=== PATIENT | male | born 1950 | race Caucasian/White ===

== ENCOUNTER 2017-05-13 09:44 | Outpatient (CLI) | payer MEDICARE, BC ==
[2017-05-13] MEDS ORDERED: Iopamidol 370 76% 100 ML VIAL ONE (16:04)
== END 2017-05-13 09:45 | disposition home or self-care (01) ==
LOC: BICCT 09:44
PROVIDERS: ATTEND Internal Medicine Medical Oncology
DX: C64.1 Malignant neoplasm of right kidney, except renal pelvis (principal); C61 Malignant neoplasm of prostate; I70.90 Unspecified atherosclerosis; K57.90 Diverticulosis of intestine, part unspecified, without perforation or abscess without bleeding
CPT/HCPCS: 71260; 74177

== ENCOUNTER 2017-10-23 16:07 | Outpatient (CLI) | payer MEDICARE, BC ==
[2017-10-23 17:15] LABS: #Basophils 0.1 thou/uL (0.0-0.2); #Eosinphils 0.2 thou/uL (0.0-0.7); #Lymphocytes 2.4 thou/uL (1.20-3.40); #Monocytes 0.7 thou/uL (0.11-0.59); #Neutrophils 5.6 thou/uL (1.40-6.50); %Basophils 0.8 % (0.0-1.0); %Eosinophils 2.1 % (0.0-10.0); %Lymphocytes 26.8 % (21.0-51.0); %Monocytes 7.4 % (0.0-10.0); Hemoglobin 13.6 g/dL (14.0-18.0); Mean Corpuscular HGB CONC 33.9 g/dL (32.0-36.0); Mean Corpuscular Hemoglobin 30.5 pg (27.0-31.0); Mean Corpuscular Volume 89.9 fL (78.0-98.0); Mean Platelet Volume 7.9 fL (7.4-10.4); Platelet Count 218 thou/uL (130-400); RBC Distribution Width 12.5 % (11.5-14.5); Red Blood Cell (RBC) Count 4.45 mill/uL (4.70-6.10); White Blood Cell (WBC) Count 8.9 thou/uL (4.8-10.8)
[2017-10-23 17:36] LABS: ALT (SGPT) 18 U/L (8-55); AST (SGOT) 15 U/L (5-34); Albumin 4.1 g/dL (3.4-4.8); Alkaline Phosphatase 48 U/L (40-150); Anion Gap 13 mmol/L (10-20); BUN (Urea Nitrogen) 23 mg/dL (8.4-25.7); Bilirubin, Total 0.3 mg/dL (0.2-1.2); Calc. Creatinine Clearance 0 mL/min (70-130); Calcium 9.5 mg/dL (7.8-10.44); Carbon Dioxide 27 mmol/L (23-31); Chloride 103 mmol/L (98-107); Estimated GFR-MDRD Greater than 90; Globulin 2.9 g/dL (2.4-3.5); Glucose 107 mg/dL (80-115); Potassium 3.9 mmol/L (3.5-5.1); Sodium 139 mmol/L (136-145)
--- NOTE | 2017-10-25 05:59 | EKG ---
Test Reason : Blood Pressure : / mmHG Vent. Rate : 049 BPM Atrial Rate : 049 BPM P-R Int : 148 ms QRS Dur : 098 ms QT Int : 442 ms P-R-T Axes : 070 031 007 degrees QTc Int : 399 ms Marked sinus bradycardia Abnormal ECG When compared with ECG of 16-JUL-2015 04:09, No significant change was found Confirmed by VIKA LEMONS ([id number]) on 10/25/2017 5:59:09 AM Referred By: BERT Confirmed By:VIKA LEMONS
== END 2017-10-23 16:08 | disposition home or self-care (01) ==
LOC: LABBT 16:07
PROVIDERS: ATTEND Surgery
DX: Z01.818 Encounter for other preprocedural examination (principal); K40.90 Unilateral inguinal hernia, without obstruction or gangrene, not specified as recurrent; K62.89 Other specified diseases of anus and rectum
CPT/HCPCS: 80053; 85025; 93005; 93010

== ENCOUNTER 2017-11-01 05:57 | Day surgery (SDC) | payer MEDICARE, BC ==
[2017-10-23 16:15] VITALS: BMI 28.3
[2017-11-01] MEDS ORDERED: Bupivacaine/Epinephrine 0.25% 30 ML VIAL ONE (06:33)
[2017-11-01] MEDS ORDERED: Ketamine 50 MG/ML VIAL ONE (06:47)
[2017-11-01] MEDS ORDERED: Phenylephrine HCL 10 MG/ML VIAL ONE (06:47)
[2017-11-01] MEDS ORDERED: Fentanyl 100 MCG/2 ML VIAL ONE (06:47)
[2017-11-01] MEDS ORDERED: CEFAZOLIN/Water 2 GM/20 ML SYRINGE ONE (06:56)
[2017-11-01] MEDS ORDERED: Propofol 1,000 MG/100 ML VIAL IV ONE (07:59)
[2017-11-01] MEDS ORDERED: Morphine 4 MG/ML VIAL ONE ×2 (09:34→09:44)
[2017-11-01] MEDS ORDERED: Promethazine HCl 25 MG/ML VIAL ONE (09:34)
--- NOTE | 2017-11-01 09:55 | OP ---
DATE OF PROCEDURE: 11/01/2017 PREOPERATIVE DIAGNOSIS: Right inguinal hernia with rectal nodule. SURGEON: Eber Seth M.D. PROCEDURE PERFORMED: Flexible sigmoidoscopy and right inguinal hernia repair with mesh. INDICATIONS: This is a 67-year-old male with a history of prostate cancer who on rectal exam was fou nd to have some anterior nodules in the lower rectum. He also had a painful right inguinal hernia. FINDINGS: There was no abnormality seen in the mucosa, so nothing on flex sig, he did have diverticul osis of the sigmoid colon. He had an indirect right inguinal hernia. PROCEDURE IN DETAIL: After informed consent was obtained, patient was taken to the operating room an d given general endotracheal anesthesia. He was placed in the left lateral decubitus position. A di gital rectal exam was performed. The video endoscope was inserted under direct vision and advanced u sing air insufflation to the lower descending colon, then slowly removed. He had a very tortuous sig moid colon containing a lot of diverticula, but no nodules. Down in the rectum, mucosa looked good r etroflex and really could not see the nodule. There is some nodularity palpable, but not visualized. Again, normal mucosa. The colon decompressed and the scope removed. Then, he was placed in the aldana pine position. His groin was prepped and draped in usual fashion. Local anesthesia infiltrated subc utaneously and deep. A transverse right inguinal incision was performed. Subcu divided sharply. Fa scia external oblique was incised in direction of its fibers through the external ring. Spermatic co rd isolated with a Paulette drain. Cremasteric fibers . Hernia sac was found. This was dis sected from surrounding cord structures down to the internal ring and reduced. Reduction maintained utilizing a PHS hernia system. The posterior layer placed in the preperitoneal space. It was suture d to the pubic tubercle medially, tucked under the external oblique fascia laterally. Then a notch w as cut out for the spermatic cord. The cord placed anatomic. Hemostasis was assured. The external oblique fascia closed with a running 3-0 Vicryl. Tyler's closed with interrupted 3-0 Vicryl and ski n closed with a running subcuticular 4-0 Rapide. Steri-Strips applied. Sterile bandage applied. Th e patient tolerated the procedure well and was transferred to recovery in good condition. Sponge and needle count verified correct x2.
[2017-11-01] MEDS ORDERED: HYDROcodone/Acetaminophen 5/325 mg Tablet ONE (11:35)
[2017-11-01] MEDS ORDERED: Dexamethasone 20 MG/5 ML VIAL ONE (15:05)
[2017-11-01] MEDS ORDERED: Ondansetron HCl/PF 4 MG/2 ML Vial ONE (15:05)
[2017-11-01] MEDS ORDERED: PROPOFOL 200 MG/20 ML VIAL ONE (15:05)
[2017-11-01] MEDS ORDERED: Lidocaine 1% PF 5 ML VIAL ONE (15:05)
== END 2017-11-01 12:19 | disposition home or self-care (01) ==
LOC: SDC 05:57
PROVIDERS: ATTEND Surgery
PROC: 0YU50JZ Supplement Right Inguinal Region with Synthetic Substitute, Open Approach (ICD-10-PCS; principal; 2017-11-01)
PROC: 0DJD8ZZ Inspection of Lower Intestinal Tract, Via Natural or Artificial Opening Endoscopic (ICD-10-PCS; 2017-11-01)
DX: K40.90 Unilateral inguinal hernia, without obstruction or gangrene, not specified as recurrent (principal); K62.89 Other specified diseases of anus and rectum; K57.30 Diverticulosis of large intestine without perforation or abscess without bleeding; I10 Essential (primary) hypertension; Z85.46 Personal history of malignant neoplasm of prostate; Z87.891 Personal history of nicotine dependence; Z79.82 Long term (current) use of aspirin; Z79.84 Long term (current) use of oral hypoglycemic drugs; Z79.899 Other long term (current) drug therapy
CPT/HCPCS: 45330; 49505; 96374; 96375; C1781; J1100; J2001; J2270; J2370; J2405; J2550; J2704; J3010

== ENCOUNTER 2017-11-27 15:21 | Outpatient (CLI) | payer MEDICARE, BC | END 2017-11-27 15:22 | disposition home or self-care (01) | LOC: BICRAD 15:21 | PROVIDERS: ATTEND Internal Medicine Medical Oncology | DX: R91.8 Other nonspecific abnormal finding of lung field (principal) | CPT/HCPCS: 71046 ==

== ENCOUNTER 2018-05-23 11:44 | Outpatient (CLI) | payer MEDICARE, BC ==
--- NOTE | 2018-05-23 13:45 | RAD ---
PA AND LATERAL CHEST XRAY: DATE: 05/23/2018. HISTORY: Malignant neoplasm of prostate gland. COMPARISON: 11/27/2017. FINDINGS: The cardiac silhouette and pulmonary vasculature are within normal limits. The lungs are clear. Vas cular calcification is seen in the thoracic aorta. No sclerotic or lytic osseous lesions are appreci ated on this exam. Right acromioclavicular joint osteoarthritis is present. The chest is stable fro m prior exam. IMPRESSION: Stable chest without evidence of an acute cardiopulmonary process. POS: DIANA
== END 2018-05-23 11:45 | disposition home or self-care (01) ==
LOC: BICRAD 11:44
PROVIDERS: ATTEND Family Medicine
DX: C61 Malignant neoplasm of prostate (principal)
CPT/HCPCS: 71046

== ENCOUNTER 2018-05-30 13:58 | Outpatient (CLI) | payer MEDICARE, BC ==
[~2018-05-30 13:58] MED LIST: Iopamidol 370 76% 100 ML VIAL ONE
--- NOTE | 2018-05-30 16:26 | CT ---
CT CHEST AND ABDOMEN AND PELVIS WITH IV CONTRAST: INDICATIONS: History of renal and prostate cancer. COMPARISON: Prior CT chest, abdomen, and pelvis dated 05/13/2017. FINDINGS: There is scattered emphysema. Small, nonspecific, sub-4-mm pulmonary nodules within both lungs are u nchanged. No new pulmonary nodule, pleural effusion, parenchymal opacity, or lymphadenopathy is seen . There are mild coronary artery and thoracic aorta calcifications. There is stable post surgical change, consistent with partial nephrectomy versus ablation involving t he posterior aspect of the right kidney. No new solid mass is evident. No lymphadenopathy is noted. The adrenal glands, pancreas, and spleen appear within normal limits. No focal hepatic lesion is e vident. There is wall thickening and scattered colonic diverticula involving the colon, much of which is rela micah to decompression. No active inflammatory change is evident. The bladder is decompressed. The p rostate is surgically absent. No drainable fluid collection is evident. There is prominent vascular calcification involving the abdominopelvic vasculature. Scattered degene rative and osteoarthritic change. IMPRESSION: 1. No evidence of recurrent or metastatic disease. 2. Prominent colonic diverticulosis. 3. Other stable findings as above. POS: MANISH
== END 2018-05-30 13:59 | disposition home or self-care (01) ==
LOC: BICCT 13:58
PROVIDERS: ATTEND Internal Medicine Medical Oncology
DX: C64.1 Malignant neoplasm of right kidney, except renal pelvis (principal); C61 Malignant neoplasm of prostate; K57.30 Diverticulosis of large intestine without perforation or abscess without bleeding; I70.0 Atherosclerosis of aorta; I25.10 Atherosclerotic heart disease of native coronary artery without angina pectoris; J43.9 Emphysema, unspecified; M19.90 Unspecified osteoarthritis, unspecified site; R91.8 Other nonspecific abnormal finding of lung field; K63.89 Other specified diseases of intestine; Z98.890 Other specified postprocedural states
CPT/HCPCS: 71260; 74177; Q9967

== ENCOUNTER 2018-08-21 15:07 | Outpatient (CLI) | payer MEDICARE, BC ==
--- NOTE | 2018-08-21 15:25 | RAD ---
RADIOGRAPH CHEST 2 VIEWS: DATE: 08/21/2018 HISTORY: 67-year-old male with prostate cancer. FINDINGS: There is no airspace density, pulmonary edema, pleural effusion, pneumothorax, or cardiomegaly. IMPRESSION: No acute cardiopulmonary findings.
== END 2018-08-21 15:08 | disposition home or self-care (01) ==
LOC: BICRAD 15:07
PROVIDERS: ATTEND Internal Medicine Medical Oncology
DX: C61 Malignant neoplasm of prostate (principal)
CPT/HCPCS: 71046

== ENCOUNTER 2018-12-30 11:59 | Outpatient (CLI) | payer MEDICARE, BC ==
--- NOTE | 2018-12-30 12:34 | RAD ---
CHEST TWO VIEWS: 12/30/2018 HISTORY: Prostate cancer. COMPARISON: 08/21/2018 FINDINGS: Diffuse increased linear interstitial density is noted, unchanged when compared to the prior examinat ion. Heart and mediastinal contours are stable. No pneumothorax, pleural fluid, focal consolidation o r alveolar edema. The lungs are hyperinflated on the lateral view suggesting air trapping. IMPRESSION: Stable chronic findings as above. POS: DIANA
== END 2018-12-30 12:00 | disposition home or self-care (01) ==
LOC: BICRAD 11:59
PROVIDERS: ATTEND Internal Medicine Medical Oncology
DX: C61 Malignant neoplasm of prostate (principal); C64.1 Malignant neoplasm of right kidney, except renal pelvis; J98.4 Other disorders of lung
CPT/HCPCS: 71046

== ENCOUNTER 2019-06-02 08:39 | Outpatient (CLI) | payer MEDICARE, BC ==
[2019-06-02 09:26] LABS: Estimated GFR-MDRD - POC Greater than 90
--- NOTE | 2019-06-02 10:30 | CT ---
CT CHEST WITH CONTRAST CT ABDOMEN WITH CONTRAST CT PELVIS WITH CONTRAST: HISTORY: Right kidney cancer and prostate cancer. COMPARISON: CT chest and abdomen and pelvis 05/30/2018. FINDINGS: There are innumerable centrilobular small nodules throughout the lungs predominantly in the upper lob es. The largest nodule in the right upper lobe measures 3-4 mm axial image 24. No pneumothorax. No effusion. No confluent airspace consolidation. The thyroid is unremarkable. No mediastinal adenopathy. No pericardial effusion. No axillary or internal mammary adenopathy. The liver is unremarkable as well as the gallbladder. No intrahepatic or extrahepatic biliary dilata tion. Mild pancreatic parenchymal atrophy. The spleen is unremarkable. Prior partial right nephrec teo. The aortic contour is nonaneurysmal. Moderate atherosclerotic plaque of the aortoiliac system withou t aneurysmal dilatation. There are no dilated loops of large or small bowel. Apparent prior prostatectomy. High-grade divert icular disease sigmoid colon without active current inflammation. The appendix is visualized and is normal. No retroperitoneal or periaortic adenopathy. No perirenal adenopathy. No renal mass nor hydronephro sis. Punctate calculus right inferior renal collecting system versus arcuate vascular calcifications relatively similar. High-grade degenerative disk space disease L3-S1 with type 3 Modic end plate ch anges, sclerosis. There is also neural foraminal narrowing bilaterally at these levels due to disk-o steophyte complexes. No suspicious osteolytic or osteoblastic lesions. No displaced rib fracture. Osseous pelvis is intact. IMPRESSION: 1. No evidence for local recurrence of metastatic disease. 2. Lung findings of respiratory bronchiolitis-interstitial lung disease. 3. Circumferentially thickened sigmoid colon relatively similar to prior exam, likely the sequelae o f prior bouts of diverticulitis, although correlation with colonoscopy is recommended. POS: HOME
[2019-06-02] MEDS ORDERED: Iopamidol-370 76% 500 ML 1 ML ONE (15:35)
== END 2019-06-02 08:40 | disposition home or self-care (01) ==
LOC: BICCT 08:39
PROVIDERS: ATTEND Internal Medicine Medical Oncology
DX: C64.1 Malignant neoplasm of right kidney, except renal pelvis (principal); C61 Malignant neoplasm of prostate; R91.8 Other nonspecific abnormal finding of lung field
CPT/HCPCS: 71260; 74177; 82565; Q9967

== ENCOUNTER 2020-05-04 08:21 | Outpatient (CLI) | payer MEDICARE, BC ==
[2020-05-04 09:12] LABS: Estimated GFR-MDRD - POC Greater than 90
--- NOTE | 2020-05-04 10:01 | CT ---
EXAM: CT chest, abdomen, and pelvis with IV contrast: HISTORY: Malignant neoplasm of prostate gland. Malignant neoplasm right kidney. COMPARISON: 06/02/[address] abdomen and pelvis on 12/06/2019 FINDINGS: CT THORAX: Lungs: Again noted are innumerable centrilobular small nodules within the lungs bilaterally predomina ntly in the upper lobes unchanged from prior exam. No consolidation is seen. Pleura: No pleural effusion. Lymph nodes: No lymphadenopathy. Mediastinum: No acute process of the mediastinal structures. Chest wall: No abnormalities CT ABDOMEN AND PELVIS: Liver: Within normal limits. Gallbladder: Within normal limits. \ Pancreas: Within normal limits. Spleen: Within normal limits. Adrenal glands: Within normal limits. Kidneys: Evidence of partial nephrectomy right kidney is again seen. No enhancing renal lesion is see n bilaterally, and there is no hydronephrosis. Previously seen right hydronephrosis and hydroureter has resolved. However, the previously noted right ureteral calculus has migrated further distally and is now seen in the distal right ureter just proximal to the right UVJ. Urinary Bladder: Incompletely distended but grossly within normal limits. Reproductive organs: Evidence of prostatectomy. Bowel: Colonic diverticulosis. There is suggested thickening of millard of the sigmoid colon which is l ikely related to multiple colonic diverticula and incomplete distention. No pericolonic inflammatory changes are appreciated. Loops of small bowel are normal in caliber. Adenopathy:No enlarged lymph nodes are seen by CT size criteria. Peritoneum: No free fluid or fluid collection is seen. No free intraperitoneal gas is identified. Abdominal wall: No abnormalities seen. Osseous structures: Multilevel degenerative changes are again seen probably involving the lower lumba r spine. No suspicious lytic or sclerotic osseous lesions are identified. IMPRESSION: 1. Previously noted mid right ureteral calculus has now migrated into the distal right ureter measuri ng approximately 3 mm. However, the previously noted right hydronephrosis and hydroureter has resolved. 2. Postoperative changes related to right partial nephrectomy. 3. No CT findings seen to suggest metastatic disease. 4. Lung findings likely related to bronchiolitis/interstitial lung disease. 5. Persistent thickening of the sigmoid colon similar to prior studies which again could be related t o incomplete distention and the multiple colonic diverticuli. However, this would be better evaluated with colonoscopy if this has not been performed.
[2020-05-04] MEDS ORDERED: Iopamidol 370 76% 100 ML VIAL ONE (14:17)
== END 2020-05-04 08:22 | disposition home or self-care (01) ==
LOC: CT 08:21
PROVIDERS: ATTEND Internal Medicine Medical Oncology
DX: C64.1 Malignant neoplasm of right kidney, except renal pelvis (principal); C61 Malignant neoplasm of prostate; N20.1 Calculus of ureter; Z90.5 Acquired absence of kidney; K63.89 Other specified diseases of intestine
CPT/HCPCS: 71260; 74177; 82565; Q9967

== ENCOUNTER 2020-12-05 16:08 | Outpatient (CLI) | payer MEDICARE, BC ==
[2020-12-05 17:44] LABS: Hemoglobin 13.9 g/dL (13.5-17.5); Mean Corpuscular HGB CONC 34.1 g/dL (32.0-36.0); Mean Corpuscular Hemoglobin 29.1 pg (27.0-33.0); Mean Corpuscular Volume 85.5 fl (81.2-95.1); Mean Platelet Volume 10.6 fl (7.4-10.4); Platelet Count 293 10x3/uL (150-450); RBC Distribution Width 14.4 % (11.5-14.5); Red Blood Cell (RBC) Count 4.77 10x6/uL (4.32-5.72); White Blood Cell (WBC) Count 10.7 10x3/uL (3.5-10.5)
[2020-12-05 17:55] LABS: Anion Gap 14 mmol/L (10-20); BUN (Urea Nitrogen) 19 mg/dL (8.4-25.7); Calc. Creatinine Clearance 0 mL/min (70-130); Calcium 9.7 mg/dL (7.8-10.44); Carbon Dioxide 24 mmol/L (23-31); Chloride 105 mmol/L (98-107); Glucose 96 mg/dL (83-110); Sodium 139 mmol/L (136-145)
[2020-12-05 18:04] LABS: INR-International Normal Ratio 0.9; PTT 27.6 sec (22.0-33.0); Prothrombin Time 10.4 sec (9.5-12.1)
[2020-12-06 08:18] LABS: SARS-CoV-2 PCR by NAA Not Detected (NotDetected)
== END 2020-12-05 16:09 | disposition home or self-care (01) ==
LOC: LABBT 16:08
PROVIDERS: ATTEND Neurological Surgery
DX: Z01.812 Encounter for preprocedural laboratory examination (principal); Z20.822 Contact with and (suspected) exposure to COVID-19
CPT/HCPCS: 80048; 85027; 85610; 85730; U0003; U0005

== ENCOUNTER 2020-12-08 06:03 | Day surgery (SDC) | payer MEDICARE, BC ==
[2020-12-07 11:31] VITALS: BMI 27.7
[2020-12-08] MEDS ORDERED: Thrombin 5000 UNITS/5 ML VIAL ONE (06:09)
[2020-12-08] MEDS ORDERED: Neomycin-Polymyxin 1 ML AMP ONE (06:09)
[2020-12-08] MEDS ORDERED: cefOXitin Sodium/Dextrose 2 GM/50 ML BAG ONE (06:14)
[2020-12-08] MEDS ORDERED: ceFAZolin 2 GM/DEX 5% 100 ML BAG ONE (06:15)
[2020-12-08] MEDS ORDERED: Fentanyl 100 MCG/2 ML VIAL ONE ×3 (06:50→10:25)
[2020-12-08] MEDS ORDERED: Ondansetron PF 4 MG/2 ML Vial ONE (07:01)
[2020-12-08] MEDS ORDERED: Lidocaine 2% PF 5 ML VIAL ONE (07:01)
[2020-12-08] MEDS ORDERED: Dexamethasone 20 MG/5 ML VIAL ONE (07:01)
[2020-12-08] MEDS ORDERED: Metoclopramide HCl 10 MG/2 ML VIAL ONE (07:01)
[2020-12-08] MEDS ORDERED: Succinylcholine 200 MG/10 ml SYRINGE FS ONE (07:01)
[2020-12-08] MEDS ORDERED: ePHEDrine 50 MG/ML VIAL ONE (07:01)
[2020-12-08] MEDS ORDERED: Rocuronium Bromide 10 MG/ML (10ML VIAL) ONE (07:01)
[2020-12-08] MEDS ORDERED: PROPOFOL 200 MG/20 ML VIAL ONE (07:01)
[2020-12-08] MEDS ORDERED: diphenhydrAMINE 50 MG/ML VIAL ONE (07:01)
[2020-12-08] MEDS ORDERED: Morphine 10 MG/ML VIAL ONE (08:48)
[2020-12-08] MEDS ORDERED: SUGAMMADEX SODIUM 200 MG/2 ML VIAL ONE (09:13)
[2020-12-08] MEDS ORDERED: Tamsulosin HCl 0.4 MG CAP ONE (09:52)
[2020-12-08] MEDS ORDERED: Morphine Sulfate 2 MG/ML SYRINGE SLOW IVP PRN (09:53)
[2020-12-08] MEDS ORDERED: HYDROmorphone 2 MG/ML VIAL SLOW IVP PRN (09:53)
[2020-12-08] MEDS ORDERED: Ondansetron HCl/PF 4 MG/2 ML Vial IVP PRN (09:53)
[2020-12-08] MEDS ORDERED: HYDROcodone/Acetaminophen 5/325 mg Tablet ONE (11:55)
== END 2020-12-08 13:58 | disposition home or self-care (01) ==
LOC: SDC 06:03
PROVIDERS: ATTEND Neurological Surgery
PROC: 0RG10A0 Fusion of Cervical Vertebral Joint with Interbody Fusion Device, Anterior Approach, Anterior Column, Open Approach (ICD-10-PCS; principal; 2020-12-08)
DX: M50.021 Cervical disc disorder at C4-C5 level with myelopathy (principal); M47.12 Other spondylosis with myelopathy, cervical region; M48.061 Spinal stenosis, lumbar region without neurogenic claudication; I10 Essential (primary) hypertension; Z85.46 Personal history of malignant neoplasm of prostate; Z87.891 Personal history of nicotine dependence; Z79.82 Long term (current) use of aspirin; Z79.84 Long term (current) use of oral hypoglycemic drugs; Z79.899 Other long term (current) drug therapy; Z90.5 Acquired absence of kidney
CPT/HCPCS: 20930; 20936; 22551; 22845; 22853; 76000; C1713 ×3; C1776 ×2; J0694; J1100; J1200; J2001; J2270; J2405; J2704; J2765; J3010; J3490

== ENCOUNTER 2020-12-21 10:24 | Outpatient (CLI) | payer MEDICARE, BC | END 2020-12-21 10:25 | disposition home or self-care (01) | LOC: TBSIIMAG 10:24 | PROVIDERS: ATTEND Neurological Surgery | DX: M50.00 Cervical disc disorder with myelopathy, unspecified cervical region (principal); Z98.1 Arthrodesis status | CPT/HCPCS: 72040 ==

== ENCOUNTER 2022-06-06 09:58 | Outpatient (CLI) | payer MEDICARE ==
[~2022-06-06 09:58] MED LIST changes: -Iopamidol 370 76% 100 ML VIAL ONE; +Iopamidol-370 76% 500 ML MDV (1 ML CHARGE) ONE
== END 2022-06-06 09:59 | disposition home or self-care (01) ==
LOC: CT 09:58
PROVIDERS: ATTEND Internal Medicine Medical Oncology
DX: C64.1 Malignant neoplasm of right kidney, except renal pelvis (principal); C61 Malignant neoplasm of prostate; R91.1 Solitary pulmonary nodule; N20.1 Calculus of ureter; Z90.5 Acquired absence of kidney
CPT/HCPCS: 71260; 74177; 82565

== ENCOUNTER 2023-08-06 12:09 | Day surgery (SDC) | payer MEDICARE ==
[2023-08-02 14:01] VITALS: BMI 25.2
[2023-08-06] MEDS ORDERED: Acetaminophen 500 MG TAB ONE (12:20)
[2023-08-06] MEDS ORDERED: Ketorolac Tromethamine 30 MG (1 mL) VIAL ONE (12:20)
[2023-08-06] MEDS ORDERED: EPINEPHrine 1 MG/ML VIAL ONE (14:27)
[2023-08-06] MEDS ORDERED: Bupivacaine 0.25% HCL 30 ML VIAL ONE (14:27)
[2023-08-06] MEDS ORDERED: PROPOFOL 20 ML ONE (14:33)
[2023-08-06] MEDS ORDERED: CEFAZOLIN 2 GM VIAL ONE (14:35)
[2023-08-06] MEDS ORDERED: Sodium Chloride 0.9% 100 ML ONE (14:36)
[2023-08-06] MEDS ORDERED: Lidocaine 2% PF 5 ML VIAL ONE (14:39)
[2023-08-06] MEDS ORDERED: fentaNYL PF 100 MCG/2 ML SYRINGE ONE (14:45)
[2023-08-06] MEDS ORDERED: Ondansetron PF 4 MG/2 ML Vial ONE (14:51)
== END 2023-08-06 17:00 | disposition home or self-care (01) ==
LOC: SDC 12:09
PROVIDERS: ATTEND Specialist
PROC: 0JH60WZ Insertion of Totally Implantable Vascular Access Device into Chest Subcutaneous Tissue and Fascia, Open Approach (ICD-10-PCS; principal; 2023-08-06)
DX: C25.9 Malignant neoplasm of pancreas, unspecified (principal); C79.9 Secondary malignant neoplasm of unspecified site; I10 Essential (primary) hypertension; E78.2 Mixed hyperlipidemia; Z90.79 Acquired absence of other genital organ(s); Z79.899 Other long term (current) drug therapy; Z87.891 Personal history of nicotine dependence
CPT/HCPCS: 36561; 71045; C1788; J0171; J0665; J1642; J1885; J2001; J2405; J2704; J3490

== ENCOUNTER 2023-08-19 12:55 | Emergency (ER) | payer MEDICARE ==
[2023-08-19 14:50] LABS: ALT (SGPT) 50 U/L (8-55); AST (SGOT) 38 U/L (5-34); Alkaline Phosphatase 155 U/L (40-110); Anion Gap 14 mmol/L (10-20); BUN (Urea Nitrogen) 40 mg/dL (8.4-25.7); Bilirubin, Total 0.5 mg/dL (0.2-1.2); Calc. Creatinine Clearance 0 mL/min (70-130); Calcium 8.6 mg/dL (7.8-10.44); Carbon Dioxide 22 mmol/L (23-31); Chloride 105 mmol/L (98-107); Estimated GFR 93; Globulin 3.5 g/dL (2.4-3.5); Glucose 126 mg/dL (83-110); Potassium 4.1 mmol/L (3.5-5.1); Protein, Total 6.5 g/dL (5.8-8.1); Sodium 137 mmol/L (136-145)
[2023-08-19 14:57] LABS: INR-International Normal Ratio 1.3; PTT 27.8 sec (22.9-36.1); Prothrombin Time 16.2 sec (12.0-14.7)
[2023-08-19 15:03] LABS: Anisocytosis SLIGHT = 6-15 cells HPF (0-5); Burr Cells SLIGHT = 2-5 cells HPF (0-1); Microcytosis SLIGHT = 6-15 cells HPF (0-5); Platelet Adequacy Comment Platelets Decreased; Polychromasia SLIGHT = 2-3 cells HPF (0-2); Target Cells SLIGHT = 2-5 cells HPF (0-1)
[2023-08-19 15:04] LABS: #Basophils 0.05 10x3/uL (0.0-0.2); %Basophils 0.2 % (0.0-1.0); %Eosinophils 1.3 % (0.0-10.0); %Lymphocytes 8.7 % (21.0-51.0); %Monocytes 6.3 % (0.0-10.0); %Neutrophils 81.7 % (42.0-75.0); Hematocrit 25.6 % (42.0-52.0); Hemoglobin 8.6 g/dL (14.0-18.0); Mean Corpuscular HGB CONC 33.6 g/dL (32.0-36.0); Mean Corpuscular Hemoglobin 30.2 pg (27.0-31.0); Mean Corpuscular Volume 89.8 fL (78.0-98.0); Mean Platelet Volume 10.7 fL (7.4-10.4); Platelet Count 105 10x3/uL (130-400); RBC Distribution Width 13.5 % (11.5-14.5); Red Blood Cell (RBC) Count 2.85 mill/uL (4.70-6.10)
== END 2023-08-19 15:33 | disposition home or self-care (01) ==
LOC: ERS 12:55
DX: R04.0 Epistaxis (principal); I10 Essential (primary) hypertension; E78.5 Hyperlipidemia, unspecified; E11.9 Type 2 diabetes mellitus without complications
CPT/HCPCS: 80053; 85025; 85610; 85730; 99283

== ENCOUNTER 2023-08-28 15:43 | Inpatient (IN) | payer MEDICARE ==
[2023-08-28 16:09] LABS: #Basophils 0.05 10x3/uL (0.0-0.2); %Basophils 0.2 % (0.0-1.0); %Eosinophils 0.1 % (0.0-10.0); %Lymphocytes 6.6 % (21.0-51.0); %Neutrophils 89.7 % (42.0-75.0); Hematocrit 31.9 % (42.0-52.0); Hemoglobin 10.7 g/dL (14.0-18.0); Mean Corpuscular HGB CONC 33.5 g/dL (32.0-36.0); Mean Corpuscular Hemoglobin 29.6 pg (27.0-31.0); Mean Corpuscular Volume 88.1 fL (78.0-98.0); Mean Platelet Volume 9.5 fL (7.4-10.4); Platelet Count 300 10x3/uL (130-400); Red Blood Cell (RBC) Count 3.62 mill/uL (4.70-6.10)
[2023-08-28 16:26] LABS: ALT (SGPT) 40 U/L (8-55); AST (SGOT) 40 U/L (5-34); Albumin 3.1 g/dL (3.4-4.8); Alkaline Phosphatase 159 U/L (40-110); Anion Gap 18 mmol/L (10-20); BUN (Urea Nitrogen) 50 mg/dL (8.4-25.7); Bilirubin, Total 0.6 mg/dL (0.2-1.2); Calc. Creatinine Clearance 0 mL/min (70-130); Calcium 9.3 mg/dL (7.8-10.44); Carbon Dioxide 24 mmol/L (23-31); Chloride 99 mmol/L (98-107); Estimated GFR 91; Globulin 4.5 g/dL (2.4-3.5); Glucose 155 mg/dL (83-110); Lipase 8 U/L (8-78); Potassium 4.3 mmol/L (3.5-5.1); Protein, Total 7.6 g/dL (5.8-8.1); Sodium 137 mmol/L (136-145)
[2023-08-28 16:30] LABS: Troponin I 0.104 ng/mL (< 0.028)
[2023-08-28 16:46] LABS: Bacteria/HPF None Seen HPF (None Seen); Bilirubin Negative (Negative); Blood, Urine Negative (Negative); CAUTI Indications for Culture Alt mental st,lethar; Clarity Clear (Clear); Glucose, Urine (Dipstick) Normal (Negative); Ketone, Urine Negative (Negative); Leukocyte Negative Leu/uL (Negative); Nitrite Negative (Negative); Protein, Urine (Dipstick) Negative (Neg-Trace); RBC/HPF 0-3 HPF (0-3); Specific Gravity, Urine 1.013 (1.002-1.036); Squamous Epithelial None Seen HPF (0-3); Urobilinogen Normal mg/dL (Less than 2); WBC/HPF 0-3 HPF (0-3); pH, Urine 5.5 (5.0-9.0)
[2023-08-28] MEDS ORDERED: fentaNYL 50 mcg/mL 1 mL Vial ONE (17:01)
[2023-08-28 17:02] LABS: Urine Culture Reflex No No
[2023-08-28] MEDS ORDERED: Aspirin Chewable 81 MG TAB ONE (17:20)
[2023-08-28] MEDS ORDERED: Cefepime 2 GM VIAL ONE (17:20)
[2023-08-28] MEDS ORDERED: Sodium Chloride 0.9% 100 ML ONE (17:21)
[2023-08-28] MEDS ORDERED: Enoxaparin 60 MG (0.6 mL) SYRINGE ONE (17:50)
[2023-08-28] MEDS ORDERED: Enoxaparin 30 MG (0.3 mL) SYRINGE ONE (17:50)
[2023-08-28] MEDS ORDERED: Acetaminophen 325 MG TAB PO PRN (18:02)
[2023-08-28] MEDS ORDERED: HYDROcodone/Acetaminophen 5/325 mg Tablet PO PRN (18:02)
[2023-08-28] MEDS ORDERED: Ondansetron PF 4 MG/2 ML Vial IVP PRN (18:02)
[2023-08-28] MEDS ORDERED: Ipratropium/Albuterol 3 ML NEB NEB PRN (18:15)
[2023-08-28] MEDS ORDERED: Dextrose 5% in Water 1,000 ML IV PRN (18:19)
[2023-08-28] MEDS ORDERED: Dextrose 50% Abboject 50 ML SYRINGE SLOW IVP PRN (18:19)
[2023-08-28] MEDS ORDERED: Glucagon 1 MG/ML KIT IM PRN (18:19)
[2023-08-28] MEDS ORDERED: HumaLOG 300 UNITS/3 ML VIAL SC PRN (18:19)
[2023-08-28] MEDS ORDERED: HYDROcodone/Acetaminophen 10/325 mg Tablet PO PRN (18:59)
[2023-08-28] MEDS ORDERED: Morphine 2 MG/ML VIAL SLOW IVP PRN (19:01)
[2023-08-28 19:25] LABS: Troponin I 0.102 ng/mL (< 0.028)
[2023-08-28 20:05] VITALS: BMI 25.4
[2023-08-28] MEDS ORDERED: Vancomycin 1 GM in Premix 1 BAG IVPB SCH (21:00)
[2023-08-28] MEDS: Ipratropium/Albuterol 3 ML NEB NEB SCH (21:29)
[2023-08-28 23:19] LABS: Lactic Acid 1.8 mmol/L (0.5-2.2)
[2023-08-28 23:23] LABS: Troponin I 0.085 ng/mL (< 0.028)
[2023-08-28] MEDS: Famotidine/PF 20 mg/2ml Vial SLOW IVP SCH (23:23)
[2023-08-28] MEDS: Atorvastatin Calcium 10 MG TAB PO SCH (23:23)
[2023-08-28] MEDS: Senokot 8.6 MG TAB PO SCH (23:23)
[2023-08-28] MEDS: guaiFENesin ER 600 MG TAB PO SCH (23:24)
[2023-08-28] MEDS: Sodium Chloride 0.9% 1,000 ML IV SCH (23:24)
[2023-08-29 02:09] LABS: #Basophils 0.04 10x3/uL (0.0-0.2); %Basophils 0.3 % (0.0-1.0); %Eosinophils 0.3 % (0.0-10.0); %Lymphocytes 9.8 % (21.0-51.0); %Monocytes 1.8 % (0.0-10.0); %Neutrophils 86.7 % (42.0-75.0); Hematocrit 24.8 % (42.0-52.0); Hemoglobin 8.3 g/dL (14.0-18.0); Mean Corpuscular HGB CONC 33.5 g/dL (32.0-36.0); Mean Corpuscular Hemoglobin 30.3 pg (27.0-31.0); Mean Corpuscular Volume 90.5 fL (78.0-98.0); Mean Platelet Volume 9.3 fL (7.4-10.4); Platelet Count 228 10x3/uL (130-400); RBC Distribution Width 16.8 % (11.5-14.5); Red Blood Cell (RBC) Count 2.74 mill/uL (4.70-6.10)
[2023-08-29 02:32] LABS: Troponin I 0.093 ng/mL (< 0.028)
[2023-08-29 04:34] LABS: Vancomycin, Random 20.4 ug/mL (See Comment)
[2023-08-29 04:36] LABS: ALT (SGPT) 24 U/L (8-55); AST (SGOT) 26 U/L (5-34); Albumin 2.4 g/dL (3.4-4.8); Alkaline Phosphatase 112 U/L (40-110); Anion Gap 14 mmol/L (10-20); BUN (Urea Nitrogen) 44 mg/dL (8.4-25.7); Bilirubin, Total 0.6 mg/dL (0.2-1.2); Calc. Creatinine Clearance 118 mL/min (70-130); Calcium 8.3 mg/dL (7.8-10.44); Carbon Dioxide 20 mmol/L (23-31); Chloride 105 mmol/L (98-107); Estimated GFR 98; Globulin 3.5 g/dL (2.4-3.5); Glucose 123 mg/dL (83-110); Potassium 4.2 mmol/L (3.5-5.1); Protein, Total 5.9 g/dL (5.8-8.1); Sodium 135 mmol/L (136-145)
[2023-08-29] MEDS: Cefepime 2 GM VIAL ONE (07:15)
[2023-08-29 07:17] LABS: Troponin I 0.084 ng/mL (< 0.028)
[2023-08-29] MEDS: Cefepime 2 GM in Sodium Chloride 0.9% 100 ML IVPB SCH (07:49)
[2023-08-29] MEDS: fentaNYL 12 mcg Patch TD SCH (09:38)
[2023-08-29] MEDS: Enoxaparin 100 MG (1 mL) SYRINGE SC SCH (09:39)
[2023-08-29] MEDS: Vancomycin (BATCH) 1.25 GM in Premix 1 BAG IVPB SCH (09:45)
[2023-08-29 11:48] VITALS: BMI 25.4
[2023-08-29] MEDS ORDERED: PEGFILGRASTIM-PBBK 6 MG/0.6 ML SYRINGE SQ SCH (18:00)
[2023-08-29] MEDS: PEGFILGRASTIM-JMDB 6 MG/0.6 ML SYRINGE SQ SCH ×2 (18:13→18:35)
[2023-08-29] MEDS: Vancomycin (BATCH) 1.5 GM in Premix 1 BAG IVPB SCH (22:31)
[2023-08-30 06:24] LABS: Hematocrit 24.3 % (42.0-52.0); Mean Corpuscular HGB CONC 32.9 g/dL (32.0-36.0); Mean Corpuscular Hemoglobin 30.3 pg (27.0-31.0); Mean Platelet Volume 9.8 fL (7.4-10.4); Platelet Count 257 10x3/uL (130-400); RBC Distribution Width 16.9 % (11.5-14.5); Red Blood Cell (RBC) Count 2.64 mill/uL (4.70-6.10)
[2023-08-30 06:36] LABS: Vancomycin, Random 17.7 ug/mL (See Comment)
[2023-08-30 06:37] LABS: ALT (SGPT) 20 U/L (8-55); AST (SGOT) 16 U/L (5-34); Albumin 2.3 g/dL (3.4-4.8); Alkaline Phosphatase 103 U/L (40-110); Anion Gap 13 mmol/L (10-20); BUN (Urea Nitrogen) 25 mg/dL (8.4-25.7); Bilirubin, Total 0.7 mg/dL (0.2-1.2); Calc. Creatinine Clearance 121 mL/min (70-130); Calcium 7.7 mg/dL (7.8-10.44); Carbon Dioxide 19 mmol/L (23-31); Chloride 108 mmol/L (98-107); Estimated GFR 98; Globulin 3.1 g/dL (2.4-3.5); Glucose 112 mg/dL (83-110); Potassium 3.8 mmol/L (3.5-5.1); Protein, Total 5.4 g/dL (5.8-8.1); Sodium 136 mmol/L (136-145)
[2023-08-30 06:48] LABS: Anisocytosis MODERATE=16-30 cells HPF (0-5); Band 8 % (5-11); Eosinophils 1 % (0-10); Lymphocytes 3 % (21-51); Macrocytosis SLIGHT = 6-15 cells HPF (0-5); Neutrophil 88 % (42-75); Ovalocytes SLIGHT = 2-5 cells HPF (0-1); Platelet Adequacy Comment Platelets Normal; Poikilocytosis SLIGHT = 6-15 cells HPF (0-5); Polychromasia SLIGHT = 2-3 cells HPF (0-2)
[2023-08-30] MEDS ORDERED: HYDROcodone/Acetaminophen 10/325 mg Tablet PO PRN (08:39)
[2023-08-30] MEDS: Megestrol Acetate 400 MG/10 ML UDCUP PO SCH (14:45)
[2023-08-30] MEDS: Vancomycin (BATCH) 2.5 GM in Premix 1 BAG IVPB SCH (14:58)
[2023-08-31 04:26] LABS: Hematocrit 21.7 % (42.0-52.0); Hemoglobin 7.2 g/dL (14.0-18.0); Mean Corpuscular HGB CONC 33.2 g/dL (32.0-36.0); Mean Corpuscular Hemoglobin 30.1 pg (27.0-31.0); Mean Corpuscular Volume 90.8 fL (78.0-98.0); Mean Platelet Volume 10.1 fL (7.4-10.4); Platelet Count 241 10x3/uL (130-400); Red Blood Cell (RBC) Count 2.39 mill/uL (4.70-6.10)
[2023-08-31 04:55] LABS: ALT (SGPT) 16 U/L (8-55); AST (SGOT) 16 U/L (5-34); Alkaline Phosphatase 98 U/L (40-110); Anion Gap 10 mmol/L (10-20); BUN (Urea Nitrogen) 21 mg/dL (8.4-25.7); Band 25 % (5-11); Bilirubin, Total 0.4 mg/dL (0.2-1.2); Calc. Creatinine Clearance 118 mL/min (70-130); Calcium 7.7 mg/dL (7.8-10.44); Carbon Dioxide 18 mmol/L (23-31); Chloride 111 mmol/L (98-107); Estimated GFR 98; Globulin 3.3 g/dL (2.4-3.5); Glucose 120 mg/dL (83-110); Hypochromia SLIGHT = 6-15 cells HPF (0-5); Lymphocytes 4 % (21-51); Neutrophil 71 % (42-75); Platelet Adequacy Comment Platelets Normal; Polychromasia SLIGHT = 2-3 cells HPF (0-2); Potassium 4.5 mmol/L (3.5-5.1); Protein, Total 5.3 g/dL (5.8-8.1); Sodium 134 mmol/L (136-145)
[2023-08-31] MEDS: Megestrol Acetate 800 MG/20 ML UDCUP PO SCH (09:41)
[2023-08-31] MEDS: Ipratropium/Albuterol 3 ML NEB NEB SCH (12:33)
[2023-09-01 04:49] LABS: Hematocrit 20.6 % (42.0-52.0); Hemoglobin 6.9 g/dL (14.0-18.0); Mean Corpuscular HGB CONC 33.5 g/dL (32.0-36.0); Mean Corpuscular Hemoglobin 30.8 pg (27.0-31.0); Platelet Count 237 10x3/uL (130-400); RBC Distribution Width 17.1 % (11.5-14.5); Red Blood Cell (RBC) Count 2.24 mill/uL (4.70-6.10)
[2023-09-01 04:51] LABS: ALT (SGPT) 15 U/L (8-55); AST (SGOT) 16 U/L (5-34); Albumin 2.1 g/dL (3.4-4.8); Alkaline Phosphatase 110 U/L (40-110); Anion Gap 11 mmol/L (10-20); BUN (Urea Nitrogen) 16 mg/dL (8.4-25.7); Bilirubin, Total 0.3 mg/dL (0.2-1.2); Calc. Creatinine Clearance 116 mL/min (70-130); Calcium 7.7 mg/dL (7.8-10.44); Carbon Dioxide 21 mmol/L (23-31); Chloride 113 mmol/L (98-107); Estimated GFR 97; Globulin 3.3 g/dL (2.4-3.5); Glucose 167 mg/dL (83-110); Potassium 4.5 mmol/L (3.5-5.1); Protein, Total 5.4 g/dL (5.8-8.1); Sodium 140 mmol/L (136-145)
[2023-09-01 05:25] LABS: Anisocytosis MODERATE=16-30 cells HPF (0-5); Band 10 % (5-11); Helmet Cells SLIGHT = 2-5 cells HPF (0-1); Hypochromia SLIGHT = 6-15 cells HPF (0-5); Lymphocytes 2 % (21-51); Macrocytosis MODERATE=16-30 cells HPF (0-5); Neutrophil 88 % (42-75); Ovalocytes SLIGHT = 2-5 cells HPF (0-1); Platelet Adequacy Comment Platelets Normal; Poikilocytosis SLIGHT = 6-15 cells HPF (0-5); Polychromasia SLIGHT = 2-3 cells HPF (0-2)
[2023-09-01] MEDS ORDERED: Furosemide 20 MG (2 mL) VIAL IVP SCH (08:00)
[2023-09-01] MEDS: Pantoprazole DR 40 MG TAB PO SCH (21:46)
[2023-09-01 22:05] LABS: Hematocrit 24.3 % (42.0-52.0); Hemoglobin 8.2 g/dL (14.0-18.0)
[2023-09-02 04:41] LABS: Hematocrit 24.2 % (42.0-52.0); Hemoglobin 8.2 g/dL (14.0-18.0); Mean Corpuscular HGB CONC 33.9 g/dL (32.0-36.0); Mean Corpuscular Hemoglobin 30.6 pg (27.0-31.0); Mean Corpuscular Volume 90.3 fL (78.0-98.0); Mean Platelet Volume 10.3 fL (7.4-10.4); Platelet Count 255 10x3/uL (130-400); Red Blood Cell (RBC) Count 2.68 mill/uL (4.70-6.10)
[2023-09-02 05:04] LABS: ALT (SGPT) 19 U/L (8-55); AST (SGOT) 19 U/L (5-34); Albumin 2.3 g/dL (3.4-4.8); Alkaline Phosphatase 127 U/L (40-110); Anion Gap 10 mmol/L (10-20); BUN (Urea Nitrogen) 12 mg/dL (8.4-25.7); Bilirubin, Total 0.5 mg/dL (0.2-1.2); Calc. Creatinine Clearance 131 mL/min (70-130); Calcium 7.7 mg/dL (7.8-10.44); Carbon Dioxide 19 mmol/L (23-31); Chloride 111 mmol/L (98-107); Estimated GFR 101; Globulin 3.3 g/dL (2.4-3.5); Glucose 116 mg/dL (83-110); Potassium 3.9 mmol/L (3.5-5.1); Protein, Total 5.6 g/dL (5.8-8.1); Sodium 136 mmol/L (136-145)
[2023-09-02 05:09] LABS: Anisocytosis SLIGHT = 6-15 cells HPF (0-5); Band 23 % (5-11); Eosinophils 1 % (0-10); Hypochromia SLIGHT = 6-15 cells HPF (0-5); Large Platelets 2.9 % (0-5); Lymphocytes 9 % (21-51); Monocytes 3 % (0-10); Neutrophil 64 % (42-75); Platelet Adequacy Comment Platelets Normal; Polychromasia SLIGHT = 2-3 cells HPF (0-2)
[2023-09-02] MEDS: Pantoprazole DR 40 MG TAB PO SCH (09:23)
[2023-09-02] MEDS: Calcium Carbonate 500 MG ChewTAB PO PRN (11:46)
[2023-09-02] MEDS ORDERED: PROPOFOL 20 ML ONE (15:32)
[2023-09-02] MEDS ORDERED: Midazolam HCl 2 mg/2 ml Vial ONE (15:41)
[2023-09-02] MEDS ORDERED: Lidocaine 1% PF 5 ML VIAL ONE (15:46)
[2023-09-02 19:16] VITALS: BP 119/58; TEMP 98.3
[2023-09-02] MEDS: Enoxaparin 100 MG (1 mL) SYRINGE SC SCH (19:38)
[2023-09-02] MEDS ORDERED: Enoxaparin 100 MG (1 mL) SYRINGE SC SCH (21:00)
== END 2023-09-02 20:10 | disposition home or self-care (01) | DRG 871 ==
LOC: ERS 15:43 → 2NO 18:04
PROVIDERS: ADMIT Family Medicine; ATTEND Family Medicine
PROC: 30233N1 Transfusion of Nonautologous Red Blood Cells into Peripheral Vein, Percutaneous Approach (ICD-10-PCS; 2023-09-01)
PROC: 0DJ08ZZ Inspection of Upper Intestinal Tract, Via Natural or Artificial Opening Endoscopic (ICD-10-PCS; principal; 2023-09-02)
DX: A41.9 Sepsis, unspecified organism (principal); J18.9 Pneumonia, unspecified organism; C25.9 Malignant neoplasm of pancreas, unspecified; I82.413 Acute embolism and thrombosis of femoral vein, bilateral; I82.441 Acute embolism and thrombosis of right tibial vein; I82.433 Acute embolism and thrombosis of popliteal vein, bilateral; N17.9 Acute kidney failure, unspecified; C78.7 Secondary malignant neoplasm of liver and intrahepatic bile duct; K22.10 Ulcer of esophagus without bleeding; I10 Essential (primary) hypertension; E78.5 Hyperlipidemia, unspecified; E11.9 Type 2 diabetes mellitus without complications; G89.3 Neoplasm related pain (acute) (chronic); K22.2 Esophageal obstruction; Z92.21 Personal history of antineoplastic chemotherapy; Z51.5 Encounter for palliative care; Z87.891 Personal history of nicotine dependence; Z79.82 Long term (current) use of aspirin; Z79.899 Other long term (current) drug therapy; Z79.84 Long term (current) use of oral hypoglycemic drugs
CPT/HCPCS: 36415; 36416; 36430; 71045; 74177; 80053; 80202; 81001; 83605; 83690; 83880; 84484; 85025; 86850; 86900; 86901; 87040; 87081; 93005; 93306; 93970; 94640; 96365; 96367; 96372; 96375; J0692; J1650; J2250; J2506; J2704; J3010; J3370; J3490; J7050; J7620; P9016; Q9967; S0028

== ENCOUNTER 2023-11-03 23:40 | Observation (INO) | payer MEDICARE ==
[2023-11-04 00:31] VITALS: BMI 23.0
[2023-11-04] MEDS ORDERED: Ondansetron ODT 4 MG TAB PO PRN (01:27)
[2023-11-04] MEDS ORDERED: Acetaminophen 325 MG TAB PO PRN (01:27)
[2023-11-04] MEDS ORDERED: Ondansetron PF 4 MG/2 ML Vial IVP PRN (01:27)
[2023-11-04] MEDS ORDERED: HYDROcodone/Acetaminophen 10/325 mg Tablet PO PRN (02:12)
[2023-11-04 02:21] LABS: Hematocrit 23.6 % (42.0-52.0); Hemoglobin 7.8 g/dL (14.0-18.0)
[2023-11-04] MEDS ORDERED: Enoxaparin 80 MG (0.8 mL) SYRINGE SC SCH ×2 (03:00→15:00)
[2023-11-04 03:13] LABS: Troponin I 0.468 ng/mL (< 0.028)
[2023-11-04] MEDS: Enoxaparin 80 MG (0.8 mL) SYRINGE SC SCH (03:50)
[2023-11-04 05:06] LABS: Troponin I 0.469 ng/mL (< 0.028)
[2023-11-04] MEDS: Pantoprazole DR 40 MG TAB PO SCH (08:43)
[2023-11-04 12:15] VITALS: BP 129/59; TEMP 97.5
[2023-11-04] MEDS ORDERED: CO Q-10 CAPSULE 100 MG PO SCH (21:00)
[2023-11-04] MEDS ORDERED: Atorvastatin Calcium 10 MG TAB PO SCH (21:00)
[2023-11-05] MEDS ORDERED: Enoxaparin 80 MG (0.8 mL) SYRINGE SC SCH (09:00)
== END 2023-11-04 12:50 | disposition home or self-care (01) ==
LOC: 2SW 11-04 00:13
PROVIDERS: ADMIT Student in an Organized Health Care Education/Training Program; ATTEND Student in an Organized Health Care Education/Training Program
DX: R79.89 Other specified abnormal findings of blood chemistry (principal); I12.0 Hypertensive chronic kidney disease with stage 5 chronic kidney disease or end stage renal disease; R04.0 Epistaxis; R73.03 Prediabetes; N18.6 End stage renal disease; C25.9 Malignant neoplasm of pancreas, unspecified; D64.9 Anemia, unspecified; D69.6 Thrombocytopenia, unspecified; I82.403 Acute embolism and thrombosis of unspecified deep veins of lower extremity, bilateral; Z87.891 Personal history of nicotine dependence; Z79.01 Long term (current) use of anticoagulants; Z90.5 Acquired absence of kidney; Z90.79 Acquired absence of other genital organ(s); Z98.890 Other specified postprocedural states; Z79.899 Other long term (current) drug therapy
CPT/HCPCS: 82565; 83880; 84484 ×2; 85014; 85018; 96372; G0378; J1650; 36415

== ENCOUNTER 2023-11-18 09:20 | Day surgery (SDC) | payer MEDICARE ==
[2023-11-18] MEDS ORDERED: Acetaminophen 500 MG TAB ONE (10:14)
[2023-11-18] MEDS ORDERED: diphenhydrAMINE 25 MG CAP ONE (10:14)
[2023-11-18] MEDS: diphenhydrAMINE 25 MG CAP PO SCH (10:16)
[2023-11-18] MEDS: Acetaminophen 500 MG TAB PO SCH (10:16)
[2023-11-18 15:10] VITALS: BP 128/61; TEMP 98.1
== END 2023-11-18 15:20 | disposition home or self-care (01) ==
LOC: ONC/OP 09:20
PROVIDERS: ATTEND Internal Medicine Hematology & Oncology
DX: D69.49 Other primary thrombocytopenia (principal); D69.6 Thrombocytopenia, unspecified
CPT/HCPCS: 36430; 86850; 86900; 86901; 86920; J1642; P9016

== ENCOUNTER 2023-11-22 14:13 | Inpatient (IN) | payer MEDICARE ==
[2023-11-22 16:17] LABS: Troponin I 1.228 ng/mL (< 0.028)
[2023-11-22 16:21] LABS: ALT (SGPT) 18 U/L (8-55); AST (SGOT) 31 U/L (5-34); Albumin 2.6 g/dL (3.4-4.8); Alkaline Phosphatase 111 U/L (40-110); Anion Gap 12 mmol/L (10-20); BUN (Urea Nitrogen) 34 mg/dL (8.4-25.7); Bilirubin, Total 0.7 mg/dL (0.2-1.2); Calc. Creatinine Clearance 0 mL/min (70-130); Calcium 7.5 mg/dL (7.8-10.44); Carbon Dioxide 20 mmol/L (23-31); Chloride 109 mmol/L (98-107); Estimated GFR 92; Globulin 3.8 g/dL (2.4-3.5); Glucose 131 mg/dL (83-110); Iron 266 ug/dL (65-175); Iron Binding Capacity, Total 266 mcg/dL (261-462); Lipase 8 U/L (8-78); Potassium 4.6 mmol/L (3.5-5.1); Protein, Total 6.4 g/dL (5.8-8.1); Sodium 136 mmol/L (136-145)
[2023-11-22 17:10] LABS: #Basophils 0.04 10x3/uL (0.0-0.2); %Basophils 0.4 % (0.0-1.0); %Eosinophils 2.4 % (0.0-10.0); %Lymphocytes 18.1 % (21.0-51.0); %Monocytes 1.6 % (0.0-10.0); %Neutrophils 76.6 % (42.0-75.0); Hematocrit 21.1 % (42.0-52.0); Hemoglobin 6.8 g/dL (14.0-18.0); Mean Corpuscular HGB CONC 32.2 g/dL (32.0-36.0); Mean Corpuscular Hemoglobin 31.5 pg (27.0-31.0); Mean Corpuscular Volume 97.7 fL (78.0-98.0); Platelet Count 30 10x3/uL (130-400); Red Blood Cell (RBC) Count 2.16 mill/uL (4.70-6.10)
[2023-11-22 17:32] LABS: INR-International Normal Ratio 1.3; PTT 29.2 sec (22.9-36.1); Prothrombin Time 16.6 sec (12.0-14.7)
[2023-11-22 17:58] LABS: Anisocytosis SLIGHT = 6-15 cells HPF (0-5); Helmet Cells SLIGHT = 2-5 cells HPF (0-1); Platelet Adequacy Comment Significant Decrease; Polychromasia SLIGHT = 2-3 cells HPF (0-2); Schistocytes SLIGHT = 2-5 cells HPF (0-1); Target Cells SLIGHT = 2-5 cells HPF (0-1)
[2023-11-22 19:46] LABS: Critical Call Chem Troponin I RESULT DECREASING; Troponin I 1.095 ng/mL (< 0.028)
[2023-11-22] MEDS ORDERED: Ondansetron PF 4 MG/2 ML Vial IVP PRN (20:58)
[2023-11-22] MEDS ORDERED: Guaifenesin DM 100-10/5 ML UDCUP PO PRN (20:58)
[2023-11-22] MEDS ORDERED: Acetaminophen 650 MG Suppository PR PRN (20:58)
[2023-11-22] MEDS ORDERED: Ondansetron ODT 4 MG TAB PO PRN (20:58)
[2023-11-22] MEDS ORDERED: Morphine 2 MG/ML VIAL SLOW IVP PRN (21:16)
[2023-11-23] MEDS: Famotidine/PF 20 mg/2ml Vial SLOW IVP SCH ×2 (00:09→00:13)
[2023-11-23 01:38] VITALS: BMI 25.7
[2023-11-23 05:36] LABS: Hematocrit 21.4 % (42.0-52.0); Mean Corpuscular HGB CONC 32.7 g/dL (32.0-36.0); Mean Corpuscular Hemoglobin 30.4 pg (27.0-31.0); Platelet Count 24 10x3/uL (130-400); RBC Distribution Width 24.1 % (11.5-14.5)
[2023-11-23 05:48] LABS: ALT (SGPT) 15 U/L (8-55); AST (SGOT) 22 U/L (5-34); Albumin 2.2 g/dL (3.4-4.8); Alkaline Phosphatase 89 U/L (40-110); Anion Gap 10 mmol/L (10-20); BUN (Urea Nitrogen) 29 mg/dL (8.4-25.7); Bilirubin, Total 0.7 mg/dL (0.2-1.2); Calc. Creatinine Clearance 115 mL/min (70-130); Calcium 7.8 mg/dL (7.8-10.44); Carbon Dioxide 20 mmol/L (23-31); Chloride 110 mmol/L (98-107); Estimated GFR 97; Globulin 3.2 g/dL (2.4-3.5); Glucose 116 mg/dL (83-110); Potassium 4.2 mmol/L (3.5-5.1); Protein, Total 5.4 g/dL (5.8-8.1); Sodium 136 mmol/L (136-145)
[2023-11-23 06:24] LABS: Anisocytosis SLIGHT = 6-15 cells HPF (0-5); Eosinophils 1 % (0-10); Lymphocytes 22 % (21-51); Macrocytosis SLIGHT = 6-15 cells HPF (0-5); Neutrophil 77 % (42-75); Ovalocytes SLIGHT = 2-5 cells HPF (0-1); Platelet Adequacy Comment Significant Decrease; Polychromasia SLIGHT = 2-3 cells HPF (0-2); Schistocytes SLIGHT = 2-5 cells HPF (0-1); Tear Drops SLIGHT = 2-5 cells HPF (0-1)
[2023-11-23] MEDS: Pantoprazole DR 40 MG TAB PO SCH (09:32)
[2023-11-23] MEDS: Gabapentin 100 MG CAP PO SCH (09:32)
[2023-11-23] MEDS: hydrOXYzine 25 MG TAB PO SCH (09:32)
[2023-11-24 06:20] LABS: #Basophils 0.07 10x3/uL (0.0-0.2); %Basophils 0.6 % (0.0-1.0); %Eosinophils 2.4 % (0.0-10.0); %Lymphocytes 24.3 % (21.0-51.0); %Monocytes 1.7 % (0.0-10.0); Hematocrit 20.7 % (42.0-52.0); Hemoglobin 6.7 g/dL (14.0-18.0); Mean Corpuscular HGB CONC 32.4 g/dL (32.0-36.0); Mean Corpuscular Hemoglobin 30.9 pg (27.0-31.0); Mean Corpuscular Volume 95.4 fL (78.0-98.0); Platelet Count 26 10x3/uL (130-400); RBC Distribution Width 22.6 % (11.5-14.5); Red Blood Cell (RBC) Count 2.17 mill/uL (4.70-6.10)
[2023-11-24 06:37] LABS: ALT (SGPT) 15 U/L (8-55); AST (SGOT) 22 U/L (5-34); Albumin 2.3 g/dL (3.4-4.8); Alkaline Phosphatase 87 U/L (40-110); Anion Gap 11 mmol/L (10-20); BUN (Urea Nitrogen) 18 mg/dL (8.4-25.7); Bilirubin, Total 0.7 mg/dL (0.2-1.2); Calc. Creatinine Clearance 119 mL/min (70-130); Calcium 7.8 mg/dL (7.8-10.44); Carbon Dioxide 20 mmol/L (23-31); Chloride 110 mmol/L (98-107); Estimated GFR 97; Globulin 3.3 g/dL (2.4-3.5); Glucose 99 mg/dL (83-110); Potassium 4.2 mmol/L (3.5-5.1); Protein, Total 5.6 g/dL (5.8-8.1); Sodium 137 mmol/L (136-145)
[2023-11-24] MEDS ORDERED: PROPOFOL 40 ML ONE (08:35)
[2023-11-24] MEDS ORDERED: Lidocaine 1% PF 5 ML VIAL ONE (08:36)
[2023-11-24] MEDS ORDERED: Ketamine In 0.9 % NaCl 50 MG/5 ML SYRINGE ONE (08:39)
[2023-11-24] MEDS ORDERED: Pantoprazole DR 40 MG TAB PO SCH (09:00)
[2023-11-24 17:57] LABS: Anion Gap 10 mmol/L (10-20); BUN (Urea Nitrogen) 16 mg/dL (8.4-25.7); Calc. Creatinine Clearance 114 mL/min (70-130); Calcium 7.7 mg/dL (7.8-10.44); Carbon Dioxide 18 mmol/L (23-31); Chloride 111 mmol/L (98-107); Estimated GFR 96; Glucose 99 mg/dL (83-110); Magnesium 1.9 mg/dL (1.6-2.6); Sodium 135 mmol/L (136-145)
[2023-11-24 18:27] LABS: Hemoglobin 7.3 g/dL (14.0-18.0); Mean Corpuscular HGB CONC 33.2 g/dL (32.0-36.0); Mean Corpuscular Hemoglobin 30.2 pg (27.0-31.0); Mean Corpuscular Volume 90.9 fL (78.0-98.0); Platelet Count 26 10x3/uL (130-400); Red Blood Cell (RBC) Count 2.42 mill/uL (4.70-6.10)
[2023-11-24 19:01] LABS: Anisocytosis MODERATE=16-30 cells HPF (0-5); Band 2 % (5-11); Burr Cells SLIGHT = 2-5 cells HPF (0-1); Helmet Cells SLIGHT = 2-5 cells HPF (0-1); Hypochromia SLIGHT = 6-15 cells HPF (0-5); Large Platelets 7.8 % (0-5); Lymphocytes 18 % (21-51); Monocytes 4 % (0-10); Neutrophil 77 % (42-75); Ovalocytes SLIGHT = 2-5 cells HPF (0-1); Platelet Adequacy Comment Significant Decrease; Polychromasia SLIGHT = 2-3 cells HPF (0-2); Schistocytes SLIGHT = 2-5 cells HPF (0-1); Target Cells SLIGHT = 2-5 cells HPF (0-1)
[2023-11-24] MEDS: Simvastatin 10 MG TAB PO SCH (20:25)
[2023-11-24] MEDS: GoLYTELY 4,000 ml Bottle PO SCH (20:26)
[2023-11-24] MEDS: hydrOXYzine 25 MG TAB PO SCH (22:18)
[2023-11-25 06:12] LABS: %Basophils 0.9 % (0.0-1.0); %Eosinophils 2.3 % (0.0-10.0); %Monocytes 2.9 % (0.0-10.0); %Neutrophils 63.3 % (42.0-75.0); Hematocrit 27.2 % (42.0-52.0); Hemoglobin 8.8 g/dL (14.0-18.0); Mean Corpuscular HGB CONC 32.4 g/dL (32.0-36.0); Mean Corpuscular Hemoglobin 29.3 pg (27.0-31.0); Mean Corpuscular Volume 90.7 fL (78.0-98.0); Platelet Count 30 10x3/uL (130-400); RBC Distribution Width 21.9 % (11.5-14.5)
[2023-11-25] MEDS ORDERED: fentaNYL 50 mcg/mL 1 mL Vial ONE ×3 (08:09→10:15)
[2023-11-25] MEDS ORDERED: PROPOFOL 20 ML ONE ×2 (08:11)
[2023-11-25] MEDS ORDERED: ePHEDrine Sulfate 50 MG/10 ML VIAL ONE (08:31)
[2023-11-25] MEDS ORDERED: Lidocaine 1% PF 5 ML VIAL ONE (08:52)
[2023-11-25] MEDS ORDERED: PHENYLEPHRINE-NS 100 MCG/ML 10 ML SYRINGE ONE (09:01)
[2023-11-25] MEDS ORDERED: Sodium Chloride 0.9% 250 ML 250 ML ONE (09:11)
[2023-11-25] MEDS ORDERED: Midazolam HCl 2 mg/2 ml Vial ONE (10:15)
[2023-11-25] MEDS ORDERED: Heparin 10,000 UNITS/ 10 ML VIAL ONE (10:15)
[2023-11-25] MEDS ORDERED: Iopamidol 370 76% 100 ML VIAL ONE (11:55)
[2023-11-25 14:20] LABS: Anion Gap 11 mmol/L (10-20); BUN (Urea Nitrogen) 14 mg/dL (8.4-25.7); Calc. Creatinine Clearance 119 mL/min (70-130); Calcium 7.8 mg/dL (7.8-10.44); Carbon Dioxide 21 mmol/L (23-31); Chloride 110 mmol/L (98-107); Estimated GFR 97; Glucose 122 mg/dL (83-110); Potassium 3.5 mmol/L (3.5-5.1); Sodium 138 mmol/L (136-145)
[2023-11-25 21:03] LABS: %Eosinophils 2.9 % (0.0-10.0); %Lymphocytes 26.6 % (21.0-51.0); %Monocytes 3.8 % (0.0-10.0); %Neutrophils 63.8 % (42.0-75.0); Hematocrit 24.7 % (42.0-52.0); Hemoglobin 8.2 g/dL (14.0-18.0); Mean Corpuscular HGB CONC 33.2 g/dL (32.0-36.0); Mean Corpuscular Hemoglobin 29.6 pg (27.0-31.0); Mean Corpuscular Volume 89.2 fL (78.0-98.0); Platelet Count 30 10x3/uL (130-400); RBC Distribution Width 21.8 % (11.5-14.5); Red Blood Cell (RBC) Count 2.77 mill/uL (4.70-6.10)
[2023-11-26 06:30] LABS: Hematocrit 25.1 % (42.0-52.0); Hemoglobin 8.2 g/dL (14.0-18.0); Mean Corpuscular HGB CONC 32.7 g/dL (32.0-36.0); Mean Corpuscular Hemoglobin 29.5 pg (27.0-31.0); Mean Corpuscular Volume 90.3 fL (78.0-98.0); Platelet Count 34 10x3/uL (130-400); RBC Distribution Width 21.9 % (11.5-14.5); Red Blood Cell (RBC) Count 2.78 mill/uL (4.70-6.10)
[2023-11-26 06:40] LABS: Anion Gap 12 mmol/L (10-20); BUN (Urea Nitrogen) 16 mg/dL (8.4-25.7); Calc. Creatinine Clearance 109 mL/min (70-130); Calcium 7.9 mg/dL (7.8-10.44); Carbon Dioxide 18 mmol/L (23-31); Chloride 111 mmol/L (98-107); Estimated GFR 95; Glucose 116 mg/dL (83-110); Sodium 137 mmol/L (136-145)
[2023-11-26 06:53] LABS: Anisocytosis SLIGHT = 6-15 cells HPF (0-5); Band 8 % (5-11); Burr Cells SLIGHT = 2-5 cells HPF (0-1); Eosinophils 3 % (0-10); Hypochromia SLIGHT = 6-15 cells HPF (0-5); Lymphocytes 15 % (21-51); Metamyelocyte 2 % (0-0); Monocytes 2 % (0-10); Myelocyte 3 % (0-0); Neutrophil 66 % (42-75); Platelet Adequacy Comment Significant Decrease; Polychromasia SLIGHT = 2-3 cells HPF (0-2); Target Cells SLIGHT = 2-5 cells HPF (0-1); Tear Drops MODERATE= 6-15 cells HPF (0-1)
[2023-11-26] MEDS: Acetaminophen 325 MG TAB PO PRN (20:46)
[2023-11-26] MEDS: Melatonin 3 MG TAB PO PRN (21:12)
[2023-11-27] MEDS: traZODone HCl 50 MG TAB PO SCH (02:18)
[2023-11-27 06:18] LABS: Anion Gap 12 mmol/L (10-20); BUN (Urea Nitrogen) 17 mg/dL (8.4-25.7); Calc. Creatinine Clearance 106 mL/min (70-130); Calcium 7.5 mg/dL (7.8-10.44); Carbon Dioxide 19 mmol/L (23-31); Chloride 110 mmol/L (98-107); Estimated GFR 94; Glucose 137 mg/dL (83-110); Potassium 3.9 mmol/L (3.5-5.1); Sodium 137 mmol/L (136-145)
[2023-11-27 09:03] LABS: #Basophils 0.08 10x3/uL (0.0-0.2); %Basophils 0.8 % (0.0-1.0); %Eosinophils 2.5 % (0.0-10.0); %Lymphocytes 29.8 % (21.0-51.0); %Neutrophils 59.5 % (42.0-75.0); Hematocrit 22.3 % (42.0-52.0); Hemoglobin 7.1 g/dL (14.0-18.0); Mean Corpuscular HGB CONC 31.8 g/dL (32.0-36.0); Mean Corpuscular Hemoglobin 29.3 pg (27.0-31.0); Mean Corpuscular Volume 92.1 fL (78.0-98.0); Platelet Count 39 10x3/uL (130-400); RBC Distribution Width 21.9 % (11.5-14.5); Red Blood Cell (RBC) Count 2.42 mill/uL (4.70-6.10)
[2023-11-27 09:43] LABS: Anisocytosis MODERATE=16-30 cells HPF (0-5); Band 8 % (5-11); Eosinophils 1 % (0-10); Lymphocytes 33 % (21-51); Monocytes 4 % (0-10); Neutrophil 54 % (42-75); Nucleated RBC (Manual Ct) 1 % (0); Platelet Adequacy Comment Platelets Decreased; Polychromasia MODERATE = 3-4 cells HPF (0-2)
[2023-11-27 17:32] LABS: #Basophils 0.09 10x3/uL (0.0-0.2); %Basophils 0.8 % (0.0-1.0); %Eosinophils 1.9 % (0.0-10.0); %Lymphocytes 22.9 % (21.0-51.0); %Monocytes 5.9 % (0.0-10.0); %Neutrophils 66.8 % (42.0-75.0); Hematocrit 27.4 % (42.0-52.0); Hemoglobin 8.9 g/dL (14.0-18.0); Mean Corpuscular HGB CONC 32.5 g/dL (32.0-36.0); Mean Corpuscular Volume 92.3 fL (78.0-98.0); Mean Platelet Volume 11.5 fL (7.4-10.4); Platelet Count 45 10x3/uL (130-400); RBC Distribution Width 20.6 % (11.5-14.5); Red Blood Cell (RBC) Count 2.97 mill/uL (4.70-6.10)
[2023-11-28 05:20] LABS: #Basophils 0.09 10x3/uL (0.0-0.2); %Basophils 0.8 % (0.0-1.0); %Eosinophils 1.8 % (0.0-10.0); %Monocytes 6.6 % (0.0-10.0); %Neutrophils 64.3 % (42.0-75.0); Hematocrit 26.3 % (42.0-52.0); Hemoglobin 8.6 g/dL (14.0-18.0); Mean Corpuscular HGB CONC 32.7 g/dL (32.0-36.0); Mean Corpuscular Hemoglobin 29.9 pg (27.0-31.0); Mean Corpuscular Volume 91.3 fL (78.0-98.0); Mean Platelet Volume 13.3 fL (7.4-10.4); Platelet Count 49 10x3/uL (130-400); RBC Distribution Width 21.1 % (11.5-14.5); Red Blood Cell (RBC) Count 2.88 mill/uL (4.70-6.10)
[2023-11-28 05:34] LABS: Anion Gap 12 mmol/L (10-20); BUN (Urea Nitrogen) 18 mg/dL (8.4-25.7); Calc. Creatinine Clearance 109 mL/min (70-130); Calcium 7.9 mg/dL (7.8-10.44); Carbon Dioxide 21 mmol/L (23-31); Chloride 108 mmol/L (98-107); Estimated GFR 95; Glucose 111 mg/dL (83-110); Sodium 137 mmol/L (136-145)
[2023-11-29 05:32] LABS: Anion Gap 10 mmol/L (10-20); BUN (Urea Nitrogen) 17 mg/dL (8.4-25.7); Calc. Creatinine Clearance 112 mL/min (70-130); Calcium 7.8 mg/dL (7.8-10.44); Carbon Dioxide 20 mmol/L (23-31); Chloride 112 mmol/L (98-107); Estimated GFR 96; Glucose 100 mg/dL (83-110); Potassium 3.8 mmol/L (3.5-5.1); Sodium 138 mmol/L (136-145)
[2023-11-29 05:41] LABS: #Basophils 0.06 10x3/uL (0.0-0.2); %Basophils 0.6 % (0.0-1.0); %Eosinophils 1.8 % (0.0-10.0); %Monocytes 8.3 % (0.0-10.0); %Neutrophils 67.3 % (42.0-75.0); Hematocrit 26.8 % (42.0-52.0); Hemoglobin 8.5 g/dL (14.0-18.0); Mean Corpuscular HGB CONC 31.7 g/dL (32.0-36.0); Mean Corpuscular Hemoglobin 30.2 pg (27.0-31.0); Mean Corpuscular Volume 95.4 fL (78.0-98.0); Mean Platelet Volume 11.4 fL (7.4-10.4); Platelet Count 65 10x3/uL (130-400); RBC Distribution Width 20.4 % (11.5-14.5); Red Blood Cell (RBC) Count 2.81 mill/uL (4.70-6.10)
[2023-11-29 07:59] VITALS: BP 135/62
[2023-11-29 11:52] VITALS: BMI 25.7
[2023-11-29 11:55] VITALS: TEMP 98.3
== END 2023-11-29 17:00 | disposition home health service (06) | DRG 813 ==
LOC: ERS 14:13 → 2NO 20:12
PROVIDERS: ADMIT Internal Medicine; ATTEND Student in an Organized Health Care Education/Training Program
PROC: 0DJ08ZZ Inspection of Upper Intestinal Tract, Via Natural or Artificial Opening Endoscopic (ICD-10-PCS; principal; 2023-11-24)
PROC: 0DJD8ZZ Inspection of Lower Intestinal Tract, Via Natural or Artificial Opening Endoscopic (ICD-10-PCS; 2023-11-25)
PROC: B51 Imaging, Veins, Fluoroscopy (ICD-10-PCS; 2023-11-25)
DX: D68.32 Hemorrhagic disorder due to extrinsic circulating anticoagulants (principal); I21.4 Non-ST elevation (NSTEMI) myocardial infarction; K92.1 Melena; C25.9 Malignant neoplasm of pancreas, unspecified; C78.7 Secondary malignant neoplasm of liver and intrahepatic bile duct; E78.5 Hyperlipidemia, unspecified; D69.59 Other secondary thrombocytopenia; T45.1X5A Adverse effect of antineoplastic and immunosuppressive drugs, initial encounter; D72.819 Decreased white blood cell count, unspecified; R04.0 Epistaxis; I10 Essential (primary) hypertension; I25.10 Atherosclerotic heart disease of native coronary artery without angina pectoris; Z66 Do not resuscitate; I35.0 Nonrheumatic aortic (valve) stenosis; D63.0 Anemia in neoplastic disease; K64.4 Residual hemorrhoidal skin tags; T45.515A Adverse effect of anticoagulants, initial encounter; K57.30 Diverticulosis of large intestine without perforation or abscess without bleeding; K64.8 Other hemorrhoids; Z92.25 Personal history of immunosuppression therapy; Z86.718 Personal history of other venous thrombosis and embolism; Z79.01 Long term (current) use of anticoagulants; Z85.828 Personal history of other malignant neoplasm of skin; Z87.891 Personal history of nicotine dependence; Z85.528 Personal history of other malignant neoplasm of kidney; Z90.5 Acquired absence of kidney; Z90.79 Acquired absence of other genital organ(s); Z92.21 Personal history of antineoplastic chemotherapy; Z79.899 Other long term (current) drug therapy; Z79.891 Long term (current) use of opiate analgesic
CPT/HCPCS: 36415; 36430; 37191; 74177; 80048; 80053; 82728; 83540; 83550; 83690; 83735; 84484; 85025; 85610; 85730; 86850; 86900; 86901; 93005; 93970; C1769; C1880; C1894; J1642; J1644; J2250; J2704; J3010; J3490; J7050; P9016; P9035; Q9967

== ENCOUNTER 2024-01-20 09:36 | Outpatient (CLI) | payer MEDICARE ==
[2024-01-20] MEDS ORDERED: Iopamidol 370 76% 100 ML VIAL ONE (10:40)
== END 2024-01-20 09:37 | disposition home or self-care (01) ==
LOC: CT 09:36
PROVIDERS: ATTEND Internal Medicine Hematology & Oncology
DX: C25.2 Malignant neoplasm of tail of pancreas (principal); I26.99 Other pulmonary embolism without acute cor pulmonale; R91.1 Solitary pulmonary nodule; K76.89 Other specified diseases of liver; K86.89 Other specified diseases of pancreas; K63.89 Other specified diseases of intestine
CPT/HCPCS: 71260; 74177

== ENCOUNTER 2024-03-23 08:43 | Inpatient (IN) | payer MEDICARE, BC ==
[2024-03-23 09:51] LABS: #Basophils 0.07 10x3/uL (0.0-0.2); %Basophils 0.3 % (0.0-1.0); %Eosinophils 0.5 % (0.0-10.0); %Lymphocytes 9.1 % (21.0-51.0); %Monocytes 7.8 % (0.0-10.0); %Neutrophils 80.2 % (42.0-75.0); Hematocrit 15.6 % (42.0-52.0); Hemoglobin 4.8 g/dL (14.0-18.0); Mean Corpuscular HGB CONC 30.8 g/dL (32.0-36.0); Mean Corpuscular Hemoglobin 31.8 pg (27.0-31.0); Mean Corpuscular Volume 103.3 fL (78.0-98.0); Mean Platelet Volume 11.5 fL (7.4-10.4); Platelet Count 55 10x3/uL (130-400); RBC Distribution Width 17.7 % (11.5-14.5); Red Blood Cell (RBC) Count 1.51 mill/uL (4.70-6.10)
[2024-03-23 09:54] LABS: ALT (SGPT) 27 U/L (8-55); AST (SGOT) 33 U/L (5-34); Albumin 2.9 g/dL (3.4-4.8); Alkaline Phosphatase 97 U/L (40-110); Anion Gap 11 mmol/L (10-20); BUN (Urea Nitrogen) 31 mg/dL (8.4-25.7); Bilirubin, Total 0.7 mg/dL (0.2-1.2); Calc. Creatinine Clearance 0 mL/min (70-130); Calcium 7.9 mg/dL (7.8-10.44); Carbon Dioxide 21 mmol/L (23-31); Chloride 112 mmol/L (98-107); Estimated GFR 90; Globulin 2.7 g/dL (2.4-3.5); Glucose 137 mg/dL (83-110); Lipase 4 U/L (8-78); Potassium 4.4 mmol/L (3.5-5.1); Protein, Total 5.6 g/dL (5.8-8.1); Sodium 140 mmol/L (136-145)
[2024-03-23 09:59] LABS: INR-International Normal Ratio 1.7; PTT 33.1 sec (22.9-36.1); Prothrombin Time 20.3 sec (12.0-14.7)
[2024-03-23 10:05] LABS: Troponin I 0.551 ng/mL (< 0.028)
[2024-03-23] MEDS ORDERED: Pantoprazole 40 MG VIAL ONE (11:22)
[2024-03-23] MEDS ORDERED: Ondansetron PF 4 MG/2 ML Vial IVP PRN (12:36)
[2024-03-23] MEDS ORDERED: Acetaminophen 325 MG TAB PO PRN (12:36)
[2024-03-23] MEDS ORDERED: Acetaminophen 650 MG Suppository PR PRN (12:36)
[2024-03-23] MEDS ORDERED: Ondansetron ODT 4 MG TAB PO PRN (12:36)
[2024-03-23] MEDS ORDERED: Albuterol 2.5 MG (3 mL) NEB NEB PRN (12:38)
[2024-03-23 13:27] LABS: Bacteria/HPF None Seen HPF (None Seen); Bilirubin Negative (Negative); Blood, Urine Negative (Negative); CAUTI Indications for Culture Immunosuppressed; Clarity Clear (Clear); Glucose, Urine (Dipstick) Normal (Negative); Ketone, Urine Negative (Negative); Leukocyte Negative Leu/uL (Negative); Nitrite Negative (Negative); Protein, Urine (Dipstick) 20 mg/dL (Neg-Trace); RBC/HPF 0-3 HPF (0-3); Specific Gravity, Urine 1.022 (1.002-1.036); Squamous Epithelial None Seen HPF (0-3); Urobilinogen Normal mg/dL (Less than 2); WBC/HPF 0-3 HPF (0-3)
[2024-03-23 13:31] LABS: Urine Culture Reflex Yes Yes
[2024-03-23] MEDS: Furosemide 20 MG (2 mL) VIAL SLOW IVP SCH (15:20)
[2024-03-23] MEDS: Phytonadione 5 MG TAB PO SCH (15:20)
[2024-03-23 16:01] LABS: Troponin I 1.234 ng/mL (< 0.028)
[2024-03-23 18:06] VITALS: BMI 28.0
[2024-03-23 18:45] LABS: Hemoglobin 6.9 g/dL (14.0-18.0)
[2024-03-23 19:19] LABS: Troponin I 2.144 ng/mL (< 0.028)
[2024-03-23] MEDS: Pantoprazole 40 MG VIAL IVP SCH (21:20)
[2024-03-23 22:53] LABS: #Basophils 0.12 10x3/uL (0.0-0.2); %Basophils 0.5 % (0.0-1.0); %Eosinophils 0.2 % (0.0-10.0); %Lymphocytes 8.1 % (21.0-51.0); %Neutrophils 80.3 % (42.0-75.0); Hematocrit 24.7 % (42.0-52.0); Hemoglobin 7.5 g/dL (14.0-18.0); Mean Corpuscular HGB CONC 30.4 g/dL (32.0-36.0); Mean Corpuscular Hemoglobin 31.9 pg (27.0-31.0); Mean Corpuscular Volume 105.1 fL (78.0-98.0); Mean Platelet Volume 11.2 fL (7.4-10.4); Platelet Count 45 10x3/uL (130-400); RBC Distribution Width 19.6 % (11.5-14.5); Red Blood Cell (RBC) Count 2.35 mill/uL (4.70-6.10)
[2024-03-23 23:16] LABS: Troponin I 3.045 ng/mL (< 0.028)
[2024-03-24 05:13] LABS: ALT (SGPT) 30 U/L (8-55); AST (SGOT) 42 U/L (5-34); Albumin 2.9 g/dL (3.4-4.8); Alkaline Phosphatase 89 U/L (40-110); Anion Gap 17 mmol/L (10-20); BUN (Urea Nitrogen) 34 mg/dL (8.4-25.7); Bilirubin, Total 1.5 mg/dL (0.2-1.2); Calc. Creatinine Clearance 82 mL/min (70-130); Calcium 7.7 mg/dL (7.8-10.44); Carbon Dioxide 18 mmol/L (23-31); Chloride 110 mmol/L (98-107); Estimated GFR 73; Globulin 2.5 g/dL (2.4-3.5); Glucose 130 mg/dL (83-110); Protein, Total 5.4 g/dL (5.8-8.1); Sodium 141 mmol/L (136-145)
[2024-03-24 05:16] LABS: Hematocrit 23.7 % (42.0-52.0); Hemoglobin 8.1 g/dL (14.0-18.0); Mean Corpuscular HGB CONC 34.2 g/dL (32.0-36.0); Mean Corpuscular Hemoglobin 31.8 pg (27.0-31.0); Mean Corpuscular Volume 92.9 fL (78.0-98.0); Mean Platelet Volume 12.4 fL (7.4-10.4); Platelet Count 36 10x3/uL (130-400); RBC Distribution Width 18.2 % (11.5-14.5); Red Blood Cell (RBC) Count 2.55 mill/uL (4.70-6.10)
[2024-03-24 05:19] LABS: Critical Call Chem Troponin I RESULT DECREASING; Troponin I 2.612 ng/mL (< 0.028)
[2024-03-24 07:05] LABS: Anisocytosis SLIGHT = 6-15 cells HPF (0-5); Lymphocytes 8 % (21-51); Macrocytosis SLIGHT = 6-15 cells HPF (0-5); Metamyelocyte 1 % (0-0); Monocytes 5 % (0-10); Neutrophil 86 % (42-75); Platelet Adequacy Comment Platelets Normal; Polychromasia SLIGHT = 2-3 cells HPF (0-2)
[2024-03-24] MEDS: Pantoprazole 40 MG VIAL IVP SCH (08:32)
[2024-03-24] MEDS ORDERED: HYDROcodone/Acetaminophen 10/325 mg Tablet PO PRN (13:45)
[2024-03-24] MEDS ORDERED: hydrOXYzine 25 MG TAB PO PRN (13:45)
[2024-03-24] MEDS ORDERED: Ipratropium/Albuterol 3 ML NEB NEB PRN (14:25)
[2024-03-24] MEDS: Furosemide 20 MG (2 mL) VIAL SLOW IVP SCH (15:40)
[2024-03-24] MEDS: traMADol HCl 50 MG TAB PO PRN (15:44)
[2024-03-24] MEDS: Cyanocobalamin (Vitamin B-12) 1,000 MCG TAB PO SCH (20:52)
[2024-03-24] MEDS: Gabapentin 100 MG CAP PO SCH (20:52)
[2024-03-24] MEDS: Melatonin 3 MG TAB PO PRN (21:47)
[2024-03-25] MEDS: Cholecalciferol 1,000 UNITS (25 MCG) TAB PO SCH (08:26)
[2024-03-25] MEDS: Loratadine 10 MG TAB PO SCH (08:26)
[2024-03-25] MEDS: CO Q-10 CAPSULE 100 MG PO SCH (08:26)
[2024-03-25 08:27] LABS: ALT (SGPT) 30 U/L (8-55); AST (SGOT) 35 U/L (5-34); Albumin 2.9 g/dL (3.4-4.8); Alkaline Phosphatase 93 U/L (40-110); Anion Gap 13 mmol/L (10-20); BUN (Urea Nitrogen) 34 mg/dL (8.4-25.7); Bilirubin, Total 1.5 mg/dL (0.2-1.2); Calc. Creatinine Clearance 97 mL/min (70-130); Calcium 7.9 mg/dL (7.8-10.44); Carbon Dioxide 22 mmol/L (23-31); Chloride 107 mmol/L (98-107); Estimated GFR 89; Glucose 144 mg/dL (83-110); Potassium 2.8 mmol/L (3.5-5.1); Protein, Total 5.9 g/dL (5.8-8.1); Sodium 139 mmol/L (136-145)
[2024-03-25] MEDS: Atorvastatin Calcium 10 MG TAB PO SCH (08:27)
[2024-03-25] MEDS: Escitalopram Oxalate 10 mg Tablet PO SCH (08:28)
[2024-03-25 08:56] LABS: #Basophils 0.11 10x3/uL (0.0-0.2); %Basophils 0.5 % (0.0-1.0); %Eosinophils 1.2 % (0.0-10.0); %Lymphocytes 8.8 % (21.0-51.0); %Monocytes 9.1 % (0.0-10.0); %Neutrophils 78.9 % (42.0-75.0); Hematocrit 25.9 % (42.0-52.0); Hemoglobin 8.2 g/dL (14.0-18.0); Mean Corpuscular HGB CONC 31.7 g/dL (32.0-36.0); Mean Corpuscular Hemoglobin 31.5 pg (27.0-31.0); Mean Corpuscular Volume 99.6 fL (78.0-98.0); Platelet Count 30 10x3/uL (130-400); RBC Distribution Width 19.7 % (11.5-14.5)
[2024-03-25] MEDS: Potassium Chloride 20 MEQ TAB PO SCH ×2 (08:59→17:05)
[2024-03-25 11:06] LABS: Anisocytosis SLIGHT = 6-15 cells HPF (0-5); Band 3 % (5-11); Eosinophils 1 % (0-10); Lymphocytes 2 % (21-51); Macrocytosis SLIGHT = 6-15 cells HPF (0-5); Monocytes 5 % (0-10); Neutrophil 88 % (42-75); Platelet Adequacy Comment Significant Decrease; Polychromasia SLIGHT = 2-3 cells HPF (0-2); Schistocytes SLIGHT = 2-5 cells HPF (0-1)
[2024-03-25] MEDS: Magnesium Oxide 250 MG TAB PO SCH (13:09)
[2024-03-26 05:19] LABS: ALT (SGPT) 33 U/L (8-55); AST (SGOT) 37 U/L (5-34); Albumin 2.8 g/dL (3.4-4.8); Alkaline Phosphatase 121 U/L (40-110); Anion Gap 12 mmol/L (10-20); BUN (Urea Nitrogen) 30 mg/dL (8.4-25.7); Bilirubin, Total 1.6 mg/dL (0.2-1.2); Calc. Creatinine Clearance 114 mL/min (70-130); Calcium 7.8 mg/dL (7.8-10.44); Carbon Dioxide 21 mmol/L (23-31); Chloride 110 mmol/L (98-107); Estimated GFR 94; Globulin 2.9 g/dL (2.4-3.5); Glucose 127 mg/dL (83-110); Potassium 3.9 mmol/L (3.5-5.1); Protein, Total 5.7 g/dL (5.8-8.1); Sodium 139 mmol/L (136-145)
[2024-03-26 07:56] LABS: #Basophils 0.13 10x3/uL (0.0-0.2); %Basophils 0.6 % (0.0-1.0); %Eosinophils 1.5 % (0.0-10.0); %Neutrophils 78.4 % (42.0-75.0); Hematocrit 25.4 % (42.0-52.0); Hemoglobin 8.1 g/dL (14.0-18.0); Mean Corpuscular HGB CONC 31.9 g/dL (32.0-36.0); Mean Corpuscular Volume 100.4 fL (78.0-98.0); Mean Platelet Volume 13.4 fL (7.4-10.4); Platelet Count 31 10x3/uL (130-400); RBC Distribution Width 20.1 % (11.5-14.5); Red Blood Cell (RBC) Count 2.53 mill/uL (4.70-6.10)
[2024-03-26 17:44] VITALS: BP 111/68; TEMP 99.2
== END 2024-03-26 15:00 | disposition home or self-care (01) | DRG 377 ==
LOC: ERS 08:43 → MSONC 13:13
PROVIDERS: ADMIT Family Medicine; ATTEND Family Medicine
PROC: 30233N1 Transfusion of Nonautologous Red Blood Cells into Peripheral Vein, Percutaneous Approach (ICD-10-PCS; principal; 2024-03-23)
DX: K57.31 Diverticulosis of large intestine without perforation or abscess with bleeding (principal); I21.A1 Myocardial infarction type 2; D62 Acute posthemorrhagic anemia; I82.403 Acute embolism and thrombosis of unspecified deep veins of lower extremity, bilateral; C78.7 Secondary malignant neoplasm of liver and intrahepatic bile duct; C25.2 Malignant neoplasm of tail of pancreas; C64.1 Malignant neoplasm of right kidney, except renal pelvis; E87.70 Fluid overload, unspecified; I35.0 Nonrheumatic aortic (valve) stenosis; E78.5 Hyperlipidemia, unspecified; R73.03 Prediabetes; I10 Essential (primary) hypertension; D64.9 Anemia, unspecified; D69.6 Thrombocytopenia, unspecified; Z79.82 Long term (current) use of aspirin; Z86.718 Personal history of other venous thrombosis and embolism; Z79.01 Long term (current) use of anticoagulants; Z80.41 Family history of malignant neoplasm of ovary; Z80.42 Family history of malignant neoplasm of prostate; Z85.828 Personal history of other malignant neoplasm of skin; Z79.899 Other long term (current) drug therapy; C61 Malignant neoplasm of prostate; D72.828 Other elevated white blood cell count
CPT/HCPCS: 36415; 36430; 71260; 74177; 80053; 81001; 82565; 83690; 84484; 85025; 85610; 85730; 86850; 86900; 86901; 87086; 93005; 93010; 93306; 96374; J1940; J2470; P9016

== ENCOUNTER 2024-03-29 17:42 | Inpatient (IN) | payer MEDICARE, BC ==
[2024-03-29 18:22] LABS: Hematocrit 26.9 % (42.0-52.0); Hemoglobin 8.6 g/dL (14.0-18.0); Mean Corpuscular Hemoglobin 31.5 pg (27.0-31.0); Mean Corpuscular Volume 98.5 fL (78.0-98.0); Platelet Count 21 10x3/uL (130-400); RBC Distribution Width 17.3 % (11.5-14.5); Red Blood Cell (RBC) Count 2.73 mill/uL (4.70-6.10)
[2024-03-29 18:32] LABS: ALT (SGPT) 504 U/L (8-55); AST (SGOT) 712 U/L (5-34); Albumin 3.1 g/dL (3.4-4.8); Alkaline Phosphatase 213 U/L (40-110); Anion Gap 20 mmol/L (10-20); BUN (Urea Nitrogen) 49 mg/dL (8.4-25.7); Bilirubin, Total 2.2 mg/dL (0.2-1.2); Calc. Creatinine Clearance 0 mL/min (70-130); Calcium 8.2 mg/dL (7.8-10.44); Carbon Dioxide 17 mmol/L (23-31); Chloride 103 mmol/L (98-107); Estimated GFR 35; Globulin 3.9 g/dL (2.4-3.5); Glucose 153 mg/dL (83-110); Potassium 5.3 mmol/L (3.5-5.1); Sodium 135 mmol/L (136-145)
[2024-03-29 18:41] LABS: Troponin I 4.509 ng/mL (< 0.028)
[2024-03-29 19:03] LABS: Anisocytosis MARKED = >30 cells HPF (0-5); Band 1 % (5-11); Burr Cells SLIGHT = 2-5 cells HPF (0-1); Lymphocytes 4 % (21-51); Macrocytosis MODERATE=16-30 cells HPF (0-5); Monocytes 2 % (0-10); Neutrophil 93 % (42-75); Nucleated RBC (Manual Ct) 1 % (0); Platelet Adequacy Comment Platelets Decreased; Polychromasia MODERATE = 3-4 cells HPF (0-2); Schistocytes SLIGHT = 2-5 cells HPF (0-1); Tear Drops SLIGHT = 2-5 cells HPF (0-1)
[2024-03-29] MEDS ORDERED: Sodium Chloride 0.9% 100 ML ONE (19:47)
[2024-03-29] MEDS ORDERED: Cefepime 2 GM VIAL ONE (19:47)
[2024-03-29 21:21] LABS: Lactic Acid 4.39 mmol/L (0.5-2.2)
[2024-03-29 21:33] LABS: Critical Call Chem Troponin I RESULT DECREASING; Troponin I 4.286 ng/mL (< 0.028)
[2024-03-29] MEDS ORDERED: Ondansetron PF 4 MG/2 ML Vial IVP PRN (21:35)
[2024-03-29] MEDS ORDERED: traMADol HCl 50 MG TAB PO PRN (21:35)
[2024-03-29] MEDS ORDERED: Ondansetron ODT 4 MG TAB PO PRN (21:35)
[2024-03-29] MEDS ORDERED: Acetaminophen 325 MG TAB PO PRN (21:35)
[2024-03-29 21:58] LABS: Bacteria/HPF None Seen HPF (None Seen); Bilirubin Negative (Negative); Blood, Urine Negative (Negative); CAUTI Indications for Culture Dysuria,urgency,freq; Glucose, Urine (Dipstick) Normal (Negative); Ketone, Urine Negative (Negative); Leukocyte Negative Leu/uL (Negative); Nitrite Negative (Negative); Protein, Urine (Dipstick) 30 mg/dL (Neg-Trace); RBC/HPF 0-3 HPF (0-3); Squamous Epithelial 0-3 HPF (0-3); Urobilinogen 3 mg/dL (Less than 2)
[2024-03-29 21:59] LABS: Clarity Hazy (Clear)
[2024-03-29] MEDS: Vancomycin (BATCH) 2 GM in Premix 1 BAG IVPB SCH (22:00)
[2024-03-29 22:01] LABS: Urine Culture Reflex No No
[2024-03-29] MEDS ORDERED: Ipratropium/Albuterol 3 ML NEB NEB PRN (22:41)
[2024-03-29] MEDS ORDERED: Prochlorperazine Maleate 5 MG TAB PO PRN (22:47)
[2024-03-29] MEDS ORDERED: Albumin 25% 100 ML ONE (22:52)
[2024-03-29 23:03] LABS: Analyzer IN Cardio ER; Base Excess -11.7 mEq/L (-2.0 to +3.0); Chloride (VBG) 105 mmol/L (98-106); Hematocrit-VBG 29 % (42.0-52.0); Sodium 135 mmol/L (133-146); pH (venous) 7.346 (7.32-7.43)
[2024-03-29 23:04] LABS: Actual Bicarbonate (HCO3v) 12.4 mEq/L (22-28)
[2024-03-29 23:05] LABS: Potassium (VBG) 7.87 mmol/L (3.70-5.30)
[2024-03-29] MEDS: Albumin 25% 25 GM (100 mL) BOT IVPB SCH (23:05)
[2024-03-29] MEDS ORDERED: Guaifenesin DM 100-10/5 ML UDCUP PO PRN (23:24)
[2024-03-29] MEDS: Sodium Bicarbonate 150 MEQ in Sterile Water 1,000 ML IVP SCH (23:52)
[2024-03-30] MEDS: Ipratropium/Albuterol 3 ML NEB NEB SCH (00:24)
[2024-03-30] MEDS ORDERED: Ipratropium/Albuterol 3 ML NEB ONE (00:29)
[2024-03-30 01:43] VITALS: BMI 27.8
[2024-03-30] MEDS: Lorazepam 2 MG/ML VIAL SLOW IVP SCH (02:55)
[2024-03-30 03:56] LABS: #Basophils 0.11 10x3/uL (0.0-0.2); #Eosinophils Less than 0.03 10x3/uL (0.0-0.7); %Basophils 0.3 % (0.0-1.0); %Lymphocytes 5.6 % (21.0-51.0); %Neutrophils 84.4 % (42.0-75.0); Hematocrit 28.3 % (42.0-52.0); Hemoglobin 8.9 g/dL (14.0-18.0); Mean Corpuscular HGB CONC 31.4 g/dL (32.0-36.0); Mean Corpuscular Hemoglobin 30.7 pg (27.0-31.0); Mean Corpuscular Volume 97.6 fL (78.0-98.0); Platelet Count 16 10x3/uL (130-400); RBC Distribution Width 17.4 % (11.5-14.5)
[2024-03-30 04:04] LABS: INR-International Normal Ratio 2.5; PTT 40.9 sec (22.9-36.1)
[2024-03-30 04:05] LABS: Lactic Acid 3.35 mmol/L (0.5-2.2)
[2024-03-30 04:09] LABS: Vancomycin, Random 29.8 ug/mL (See Comment)
[2024-03-30 04:11] LABS: ALT (SGPT) 782 U/L (8-55); AST (SGOT) 1057 U/L (5-34); Albumin 3.2 g/dL (3.4-4.8); Alkaline Phosphatase 174 U/L (40-110); Anion Gap 18 mmol/L (10-20); BUN (Urea Nitrogen) 55 mg/dL (8.4-25.7); Bilirubin, Total 2.3 mg/dL (0.2-1.2); Calc. Creatinine Clearance 41 mL/min (70-130); Calcium 7.8 mg/dL (7.8-10.44); Carbon Dioxide 15 mmol/L (23-31); Chloride 104 mmol/L (98-107); Estimated GFR 32; Globulin 3.2 g/dL (2.4-3.5); Glucose 149 mg/dL (83-110); Potassium 5.4 mmol/L (3.5-5.1); Protein, Total 6.4 g/dL (5.8-8.1); Sodium 132 mmol/L (136-145)
[2024-03-30 04:20] LABS: Troponin I 4.775 ng/mL (< 0.028)
[2024-03-30] MEDS: Sodium Bicarbonate 150 MEQ in Sterile Water 1,000 ML IVP SCH (05:31)
[2024-03-30] MEDS: Cefepime 2 GM in Sodium Chloride 0.9% 100 ML IVPB SCH (08:17)
[2024-03-30] MEDS ORDERED: Heparin 5,000 UNITS/ML VIAL SC SCH (09:00)
[2024-03-30] MEDS ORDERED: Pantoprazole 40 MG DR.TAB PO SCH (09:00)
[2024-03-30] MEDS ORDERED: Vancomycin 1 GM in Premix 1 BAG IVPB SCH (09:00)
[2024-03-30] MEDS: Pantoprazole 40 MG DR.TAB PO SCH (09:47)
[2024-03-30] MEDS: Megestrol Acetate 800 MG/20 ML UDCUP PO SCH (09:48)
[2024-03-30 10:47] LABS: Chloride (VBG) 101 mmol/L (98-106); Hematocrit-VBG 31 % (42.0-52.0); Hemoglobin (Hb) 10.4 g/dL (12.6-17.4); Sodium 132 mmol/L (133-146); pH (venous) 7.307 (7.32-7.43)
[2024-03-30 10:59] LABS: Actual Bicarbonate (HCO3v) 12.9 mEq/L (22-28)
[2024-03-30 11:20] LABS: Anion Gap 24 mmol/L (10-20); BUN (Urea Nitrogen) 65 mg/dL (8.4-25.7); Calc. Creatinine Clearance 38 mL/min (70-130); Calcium 7.4 mg/dL (7.8-10.44); Carbon Dioxide 9 mmol/L (23-31); Chloride 105 mmol/L (98-107); Estimated GFR 29; Glucose 188 mg/dL (83-110); Lactic Acid 4.74 mmol/L (0.5-2.2); Potassium 6.4 mmol/L (3.5-5.1); Sodium 132 mmol/L (136-145)
[2024-03-30] MEDS: Morphine 2 MG/ML VIAL SLOW IVP PRN (12:31)
[2024-03-30] MEDS: Lorazepam 2 MG/ML VIAL SLOW IVP PRN (12:32)
[2024-03-30] MEDS ORDERED: ALPRAZolam 0.25 MG TAB PO PRN (12:38)
[2024-03-30] MEDS: Morphine 4 MG/ML VIAL SLOW IVP PRN (12:56)
[2024-03-30 20:03] VITALS: TEMP 98.3
[2024-03-30] MEDS ORDERED: VANCOMYCIN 1.25 GM/250 ML BAG 1.25 GM in Premix 1 BAG IVPB SCH (21:00)
[2024-03-30] MEDS ORDERED: Vancomycin HCl 750 MG in Sodium Chloride 0.9% 250 ML 250 ML IVPB SCH (21:00)
[2024-03-30] MEDS ORDERED: methylPREDNISolone Sod Succ 40 MG VIAL IVP SCH (21:00)
== END 2024-03-30 23:07 | disposition expired | DRG 871 ==
LOC: ERS 17:42 → ERHOLD 20:37 → IMCU/EMU 03-30 00:51
PROVIDERS: ADMIT Internal Medicine; ATTEND Internal Medicine
PROC: 3E03329 Introduction of Other Anti-infective into Peripheral Vein, Percutaneous Approach (ICD-10-PCS; principal; 2024-03-29)
PROC: 30233J1 Transfusion of Nonautologous Serum Albumin into Peripheral Vein, Percutaneous Approach (ICD-10-PCS; 2024-03-29)
PROC: 0BH17EZ Insertion of Endotracheal Airway into Trachea, Via Natural or Artificial Opening (ICD-10-PCS; 2024-03-30)
PROC: 5A1935Z Respiratory Ventilation, Less than 24 Consecutive Hours (ICD-10-PCS; 2024-03-30)
PROC: 5A09357 Assistance with Respiratory Ventilation, Less than 24 Consecutive Hours, Continuous Positive Airway Pressure (ICD-10-PCS; 2024-03-30)
DX: A41.9 Sepsis, unspecified organism (principal); I21.4 Non-ST elevation (NSTEMI) myocardial infarction; I50.33 Acute on chronic diastolic (congestive) heart failure; J18.9 Pneumonia, unspecified organism; J96.01 Acute respiratory failure with hypoxia; C78.7 Secondary malignant neoplasm of liver and intrahepatic bile duct; E87.20 Acidosis, unspecified; C25.9 Malignant neoplasm of pancreas, unspecified; I82.403 Acute embolism and thrombosis of unspecified deep veins of lower extremity, bilateral; N17.9 Acute kidney failure, unspecified; Z66 Do not resuscitate; Z51.5 Encounter for palliative care; E78.5 Hyperlipidemia, unspecified; E87.5 Hyperkalemia; R73.03 Prediabetes; I95.9 Hypotension, unspecified; R00.0 Tachycardia, unspecified; D69.6 Thrombocytopenia, unspecified; D63.8 Anemia in other chronic diseases classified elsewhere; Y95 Nosocomial condition; F41.9 Anxiety disorder, unspecified; Z87.891 Personal history of nicotine dependence
CPT/HCPCS: 36415; 51701; 71045; 74177; 80053; 80202; 81001; 82805; 83605; 83880; 84145; 84484; 85025; 85379; 85610; 85730; 87040; 87081; 87428; 93005; 94640; 94660; 96374; 96375; A4217; J0692; J2060; J2270; J2272; J3370; J7620; P9047; Q9967